=== PATIENT | female | born 1995 | race Caucasian/White ===

== ENCOUNTER 2016-09-01 17:16 | Emergency (ER) | payer MEDICAID ==
[2016-09-01] MEDS ORDERED: DEXAMETHASONE 10 MG/ML VIAL PO STA (17:53)
[2016-09-01] MEDS ORDERED: DEXAMETHASONE 10 MG/ML VIAL ONE (18:05)
== END 2016-09-01 18:13 | disposition home or self-care (01) ==
DX: M75.52 Bursitis of left shoulder (principal); M75.51 Bursitis of right shoulder; E03.9 Hypothyroidism, unspecified

== ENCOUNTER 2016-10-16 08:12 | Emergency (ER) | payer MEDICAID ==
[2016-10-16] MEDS ORDERED: DEXAMETHASONE 10 MG/ML VIAL PO STA (08:38)
[2016-10-16] MEDS ORDERED: DEXAMETHASONE 10 MG/ML VIAL ONE (08:41)
[2016-10-16] MEDS ORDERED: CHERRY SYRUP 10 ML UDC PO ONE (08:41)
== END 2016-10-16 08:56 | disposition home or self-care (01) ==
DX: M75.51 Bursitis of right shoulder (principal); R03.0 Elevated blood-pressure reading, without diagnosis of hypertension
CPT/HCPCS: 99283; A9270

== ENCOUNTER 2017-06-26 12:41 | Outpatient (CLI) | payer MEDICAID ==
[2017-06-26 18:00] LABS: BASOPHILS % (AUTO) 0.3 %; EOSINOPHILS # (AUTO) 0.1 10^3/uL (0.0-0.7); EOSINOPHILS % (AUTO) 1.3 %; HCT - HEMATOCRIT 42.3 % (37.0-47.0); HGB - HEMOGLOBIN 13.7 g/dL (12.0-16.0); LYMPHOCYTES # (AUTO) 3.6 10^3/uL (1.5-3.5); LYMPHOCYTES % (AUTO) 37.1 %; MEAN CORPUSCULAR HEMOGLOBIN 28.2 pg (27.0-31.0); MEAN CORPUSCULAR HGB CONC 32.5 g/dL (32.0-36.0); MEAN PLATELET VOLUME 8.3 fL (7.9-10.8); MONOCYTES # (AUTO) 0.4 10^3/uL (0.0-1.0); MONOCYTES % (AUTO) 4.5 %; NEUTROPHILS # (AUTO) 5.5 10^3/uL (1.5-6.6); NEUTROPHILS % (AUTO) 56.8 %; RED BLOOD COUNT 4.86 10^6/uL (4.20-5.40); RED CELL DISTRIBUTION WIDTH 13.7 % (12.0-15.0); UNCORRECTED WHITE BLOOD COUNT 9.6 x10^3/uL; WHITE BLOOD COUNT 9.6 x10^3/uL (4.8-10.8)
[2017-06-26 18:38] LABS: ALBUMIN/GLOBULIN RATIO 1.4 (1.0-2.2); BILIRUBIN,TOTAL 0.3 mg/dL (0.2-1.0); CALCIUM 9.1 mg/dL (8.5-10.3); CREATININE 0.7 mg/dL (0.4-1.0); POTASSIUM 3.9 mmol/L (3.5-5.0); TOTAL PROTEIN 7.1 g/dL (6.7-8.2)
== END 2017-06-26 12:42 | disposition home or self-care (01) ==
LOC: LAB.F 12:41
PROVIDERS: ATTEND Physician Assistant Medical
DX: J09.X2 Influenza due to identified novel influenza A virus with other respiratory manifestations (principal)
CPT/HCPCS: 36415; 80053; 85025

== ENCOUNTER 2017-09-13 15:57 | Outpatient (CLI) | payer MEDICAID ==
[2017-09-13 16:35] LABS: BASOPHILS % (AUTO) 0.3 %; EOSINOPHILS # (AUTO) 0.1 10^3/uL (0.0-0.7); EOSINOPHILS % (AUTO) 0.7 %; HGB - HEMOGLOBIN 13.1 g/dL (12.0-16.0); LYMPHOCYTES # (AUTO) 3.4 10^3/uL (1.5-3.5); LYMPHOCYTES % (AUTO) 27.2 %; MEAN CORPUSCULAR HEMOGLOBIN 27.9 pg (27.0-31.0); MEAN CORPUSCULAR VOLUME 84.7 fL (81.0-99.0); MEAN PLATELET VOLUME 7.5 fL (7.9-10.8); MONOCYTES # (AUTO) 0.6 10^3/uL (0.0-1.0); MONOCYTES % (AUTO) 4.9 %; NEUTROPHILS # (AUTO) 8.4 10^3/uL (1.5-6.6); NEUTROPHILS % (AUTO) 66.9 %; PLT - PLATELET COUNT 269 10^3/uL (130-450); RED BLOOD COUNT 4.69 10^6/uL (4.20-5.40); RED CELL DISTRIBUTION WIDTH 13.3 % (12.0-15.0); WHITE BLOOD COUNT 12.5 x10^3/uL (4.8-10.8)
[2017-09-13 17:23] LABS: BILIRUBIN,URINE NEGATIVE (NEGATIVE); GLUCOSE, URINE (UA) NEGATIVE (NEGATIVE); KETONES,URINE (UA) 15 mg/dL (NEGATIVE); LEUKOCYTE ESTERASE, URINE NEGATIVE (NEGATIVE); NITRITE,URINE NEGATIVE (NEGATIVE); OCCULT BLOOD,URINE TRACE-INTA (NEGATIVE); PROTEIN,URINE NEGATIVE (NEGATIVE); UROBILINOGEN,URINE 0.2 (NORMAL) E.U./dL (NORMAL)
[2017-09-13 18:02] LABS: THYROID STIMULATING HORMONE 1.74 uIU/mL (0.34-5.60)
[2017-09-13 18:06] LABS: BACTERIA,URINE Rare /HPF (None Seen); CLARITY,URINE CLEAR (CLEAR); MUCUS,URINE Few Strands; RBC,URINE 0-5 /HPF (0-5); SQUAMOUS EPITHELIAL CELL,UR MANY Squamous (<= Few)
[2017-09-14 14:33] LABS: HEPATITIS B SURFACE ANTIGEN NON-REACTIVE (NON-REACTIVE)
[2017-09-14 15:12] LABS: HIV AG/AB 4TH GEN NON-REACTIVE (NON-REACTIVE)
== END 2017-09-13 15:58 | disposition home or self-care (01) ==
LOC: LAB 15:57
PROVIDERS: ATTEND Registered Nurse
DX: Z36.9 Encounter for antenatal screening, unspecified (principal)
CPT/HCPCS: 36415; 81001; 81599; 84443; 85025; 86592; 86762; 86850; 86900; 86901; 87340; 87389

== ENCOUNTER 2017-10-11 08:00 | Outpatient (CLI) | payer MEDICAID | END 2017-10-11 23:59 | disposition home or self-care (01) | LOC: LAB.R 08:00 | PROVIDERS: ATTEND Nurse Practitioner Obstetrics & Gynecology | DX: N76.0 Acute vaginitis (principal) | CPT/HCPCS: 87480; 87510; 87660 ==

== ENCOUNTER 2017-10-11 16:24 | Outpatient (CLI) | payer MEDICAID ==
[2017-10-12 17:00] LABS: MUDS CUTOFF CONCENTRATIONS CUTOFF CONC BELOW:
[2017-10-12 17:23] LABS: AMPHETAMINE SCREEN,URINE NEGATIVE (NEGATIVE); BENZODIAZEPINES SCREEN, URINE NEGATIVE (NEGATIVE); COCAINE SCREEN URINE NEGATIVE (NEGATIVE); METHADONE SCREEN, URINE NEGATIVE (NEGATIVE); METHAMPHETAMINES SCREEN, URINE NEGATIVE (NEGATIVE); OPIATE SCREEN, URINE NEGATIVE (NEGATIVE); OXYCODONE SCREEN, URINE NEGATIVE (NEGATIVE); PROPOXYPHENE SCREEN, URINE NEGATIVE (NEGATIVE); TRICYCLIC ANTIDEPRESSANT,URINE NEGATIVE (NEGATIVE)
== END 2017-10-11 16:25 | disposition home or self-care (01) ==
LOC: LAB.R 16:24
PROVIDERS: ATTEND Nurse Practitioner Obstetrics & Gynecology
DX: Z34.01 Encounter for supervision of normal first pregnancy, first trimester (principal)
CPT/HCPCS: 80306

== ENCOUNTER 2017-12-07 07:31 | Outpatient (CLI) | payer MEDICAID ==
--- NOTE | 2017-12-08 15:23 | Ultrasound Report ---
OB ULTRASOUND: 12/07/2017 CLINICAL INDICATION: anatomy. TECHNIQUE: Real-time scanning was performed with medical service representative static images obtained. LAST MENSTRUAL PERIOD: 07/15/2017 Clinical Age: 20 weeks 5 days US Age: 20 weeks 2 days EFW Hadlock: 362 grams EFW% Hadlock: 37% Heart Rate: 137 bpm EDC: 04/21/2018 US EDC: 04/24/2018 BPD Hadlock: 19 weeks 6 days; Mean mm 46 HC Hadlock: 20 weeks 1 day; Mean mm 177 AC Hadlock: 20 weeks 5 days; Mean mm 156 FL Hadlock: 20 weeks 4 days; Mean mm 34 Presentation: cephalic Placental Location: anterior Cervical Length: TA 4.6 cm Amniotic Fluid: ERYN 13.0 cm; subjectively normal; MVP 4.9 cm FINDINGS There is a single viable intrauterine gestation, in cephalic presentation. heart rate 137 BPM. Placenta is anterior, without evidence of previa. Amniotic fluid volume is subjectively normal, with the deepest pocket of 4.9 cm. By size, the fetus measures 20 weeks 2 days (20 weeks 5 days by LMP). ANATOMY The following anatomic structures were visualized and appear normal: The intracranial contents, including the ventricles and posterior fossa; the lips and orbits; the spine; the heart, including 4 chamber view and outflow tracts, and diaphragm; the abdominal contents, including the stomach, the bilateral kidneys, and urinary bladder, as well as a normal 3 vessel cord insertion; 4 limbs. No free fluid or adnexal lesion is appreciated. IMPRESSION: SINGLE VIABLE INTRAUTERINE GESTATION, WITH SIZE IN KEEPING WITH LMP DATING. NORMAL ANATOMIC SURVEY. TD: 12/07/2017 15:25 [facility]
== END 2017-12-07 07:32 | disposition home or self-care (01) ==
LOC: DI 07:31
PROVIDERS: ATTEND Registered Nurse
DX: Z34.82 Encounter for supervision of other normal pregnancy, second trimester (principal)
CPT/HCPCS: 76811

== ENCOUNTER 2017-12-13 13:55 | Outpatient (CLI) | payer MEDICAID | END 2017-12-13 13:56 | disposition home or self-care (01) | LOC: LAB.R 13:55 | PROVIDERS: ATTEND Nurse Practitioner Obstetrics & Gynecology | DX: Z11.3 Encounter for screening for infections with a predominantly sexual mode of transmission (principal) | CPT/HCPCS: 87491; 87591 ==

== ENCOUNTER 2018-01-26 11:31 | Outpatient (CLI) | payer MEDICAID ==
[2018-01-26 12:51] LABS: HGB - HEMOGLOBIN 11.2 g/dL (12.0-16.0); MEAN CORPUSCULAR HEMOGLOBIN 29.8 pg (27.0-31.0); MEAN CORPUSCULAR HGB CONC 33.9 g/dL (32.0-36.0); MEAN PLATELET VOLUME 6.8 fL (7.9-10.8); RED BLOOD COUNT 3.75 10^6/uL (4.20-5.40); RED CELL DISTRIBUTION WIDTH 14.1 % (12.0-15.0)
== END 2018-01-26 11:32 | disposition home or self-care (01) ==
LOC: LAB 11:31
PROVIDERS: ATTEND Registered Nurse
DX: Z34.82 Encounter for supervision of other normal pregnancy, second trimester (principal)
CPT/HCPCS: 36415; 82950; 85027; 86850

== ENCOUNTER 2018-03-20 08:00 | Outpatient (CLI) | payer MEDICAID | END 2018-03-20 08:01 | disposition home or self-care (01) | LOC: LAB.R 08:00 | PROVIDERS: ATTEND Nurse Practitioner Obstetrics & Gynecology | DX: Z36.85 Encounter for antenatal screening for Streptococcus B (principal) | CPT/HCPCS: 87081 ==

== ENCOUNTER 2018-03-20 11:29 | Outpatient (CLI) | payer MEDICAID ==
[2018-03-20 12:37] LABS: ALBUMIN 2.9 g/dL (3.2-5.5); BILIRUBIN,DIRECT 0.1 mg/dL (0.1-0.5); BILIRUBIN,TOTAL 0.3 mg/dL (0.2-1.0); TOTAL PROTEIN 6.8 g/dL (6.7-8.2)
== END 2018-03-20 11:30 | disposition home or self-care (01) ==
LOC: LAB 11:29
PROVIDERS: ATTEND Registered Nurse
DX: L29.8 Other pruritus (principal); Z36.85 Encounter for antenatal screening for Streptococcus B
CPT/HCPCS: 36415; 80076; 82239; 87081

== ENCOUNTER 2018-03-26 10:38 | Outpatient (CLI) | payer MEDICAID ==
[2018-03-26 11:02] VITALS: BP 106/55
== END 2018-03-26 11:34 | disposition home or self-care (01) ==
LOC: WFO 10:38 → FBP 10:39 → WFO 11:34
PROVIDERS: ATTEND Nurse Practitioner Obstetrics & Gynecology
DX: O26.619 Liver and biliary tract disorders in pregnancy, unspecified trimester (principal)
CPT/HCPCS: 59025

== ENCOUNTER 2018-03-29 14:10 | Outpatient (CLI) | payer MEDICAID ==
[2018-03-29 14:34] VITALS: BP 122/74
== END 2018-03-29 15:00 | disposition home or self-care (01) ==
LOC: WFO 14:10 → FBP 14:12 → WFO 15:00
PROVIDERS: ATTEND Registered Nurse
DX: O26.613 Liver and biliary tract disorders in pregnancy, third trimester (principal); Z3A.37 37 weeks gestation of pregnancy
CPT/HCPCS: 59025

== ENCOUNTER 2018-03-31 07:29 | Inpatient (IN) | payer MEDICAID ==
[2018-03-31 10:02] LABS: BASOPHILS % (AUTO) 0.2 %; EOSINOPHILS # (AUTO) 0.2 10^3/uL (0.0-0.7); EOSINOPHILS % (AUTO) 1.4 %; HGB - HEMOGLOBIN 10.7 g/dL (12.0-16.0); LYMPHOCYTES % (AUTO) 24.4 %; MEAN CORPUSCULAR HEMOGLOBIN 28.6 pg (27.0-31.0); MEAN CORPUSCULAR HGB CONC 33.9 g/dL (32.0-36.0); MEAN CORPUSCULAR VOLUME 84.2 fL (81.0-99.0); MEAN PLATELET VOLUME 6.9 fL (7.9-10.8); MONOCYTES # (AUTO) 0.7 10^3/uL (0.0-1.0); MONOCYTES % (AUTO) 5.9 %; NEUTROPHILS # (AUTO) 8.3 10^3/uL (1.5-6.6); NEUTROPHILS % (AUTO) 68.1 %; PLT - PLATELET COUNT 240 10^3/uL (130-450); RED BLOOD COUNT 3.75 10^6/uL (4.20-5.40); RED CELL DISTRIBUTION WIDTH 14.1 % (12.0-15.0); WHITE BLOOD COUNT 12.2 x10^3/uL (4.8-10.8)
[2018-03-31] MEDS: miSOPROStol 100 MCG TABLET BC SCH ×4 (10:09→22:35)
[2018-03-31 10:30] LABS: ALBUMIN 2.8 g/dL (3.2-5.5); BILIRUBIN,DIRECT 0.1 mg/dL (0.1-0.5); BILIRUBIN,TOTAL 0.2 mg/dL (0.2-1.0); TOTAL PROTEIN 6.5 g/dL (6.7-8.2)
[2018-03-31] MEDS ORDERED: hydrOXYzine PAMOATE 25 MG CAPSULE PO PRN (13:56)
[2018-03-31] MEDS ORDERED: URSODIOL 250 MG TABLET PO SCH ×2 (14:00→14:20)
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
--- NOTE | 2018-03-31 14:33 | CONSULTATION NOTE ---
Referring Provider Name of Referring Provider:: REYMUNDO Allan CNM Consult Date: 03/31/18 (Dictation [id number]) History - Past Medical History Endocrine/Autoimmune: reports: HyPOthyroidism Musculoskeletal: reports: Other Meds/Allgy - Home Medications Home Medications: Ambulatory Orders Medication Instructions Recorded Confirmed Control 1 tab ORAL DAILY 09/01/16 10/16/16 Diclofenac Sodium [Voltaren] 2 gm TP Q6HR PRN #1 bottle 09/01/16 10/16/16 Hydrocodone/Acetaminophen 1 - 2 each PO Q6H PRN #14 tablet 09/01/16 10/16/16 [Hydrocodon-Acetaminophen 5-325] predniSONE [Prednisone] 40 mg PO DAILY 5 Days tablet 09/01/16 10/16/16 - Allergies Allergies/Adverse Reactions: Allergies Allergy/AdvReac Type Severity Reaction Status Date / Time No Known Drug Allergies Allergy Verified 10/16/16 08:16 Conclusion/Plan - Diagnosis Diagnosis: Cholestasis of - Plan Plan: Agree with induction of labor. Will be available should problems arise. - Lab Results Fish Bones: 03/31/18 09:52
[2018-03-31] MEDS: SODIUM CHLORIDE FLUSH 0.9% 10 ML SYRINGE IVP SCH (18:06)
--- NOTE | 2018-03-31 20:23 | CONSULTATION NOTE ---
DATE OF SERVICE: 03/31/2018 Physician: Blanca Vasquez DO FACOG IDENTIFICATION: A 23-year-old G1, P0 at 37 and 0/7 week intrauterine . EDC is consistent with 8-week ultrasound. EDC is 04/21/2018. HISTORY OF PRESENT ILLNESS: Mary is a patient of the midwifery service at [facility]. Mary has had a consistent regular care since 8 weeks' gestation. This has been complicated. On 02/27/2018 at 32 weeks, 3 days Mary noted increased pruritus during her routine OB visit. She had generalized pruritus, but was worse on her abdomen. There were maculopapular lesions which were erythematous and very pruritic. Some of these areas were noted to be coalescent. Serology was performed and her total bile acids were elevated at 11. AST and ALT were within normal limits as well as alkaline phosphatase. Given the elevated bile acids Mary met criteria for cholestasis of . Because of this diagnosis Mary is here today for an induction of labor. Repeat labs today show stable AST and ALT of 16 and 11 respectively. Mary has been admitted to the hospital and given 1 dose of Cytotec. Her cervix has improved to a cervical examination of 3 cm dilation, 80 % effacement and 0 station. Current nonstress test is nonreactive and category 1. There are no decelerations. PAST MEDICAL HISTORY: Opioid use disorder. PAST SURGICAL HISTORY: None. ALLERGIES: NO KNOWN DRUG ALLERGIES. MEDICATIONS: 1. Ursodiol 300 mg 1 tab p.o. t.i.d. 2. Fluconazole ointment p.r.n. 3. Hydroxyzine 50 mg q.6 hours p.r.n. 4. vitamin. SOCIAL HISTORY: Mary is a former smoker and she has a history of opioid abuse or opioid use disorder. She denies any alcohol or illicit drug use currently. U-tox screen on 10/03/2017 was negative. PAST OBSTETRICAL HISTORY: Primigravida. PAST GYNECOLOGICAL HISTORY: She denies any abnormal Pap smears or sexually transmitted diseases. FAMILY HISTORY: Her mother had diabetes and depression. She denies any female carcinoma. REVIEW OF SYSTEMS: Negative unless otherwise stated. PHYSICAL EXAMINATION: VITAL SIGNS: Stable. She is afebrile. GENERAL: Mary is a well-developed, well-nourished female in no apparent distress. She is alert and oriented x3. HEENT: Within normal limits. CARDIOVASCULAR: Regular. No murmurs or rubs. LUNGS: Lungs are clear to auscultation bilaterally. ABDOMEN: Gravid, nontender. LABORATORY DATA: Reveal that she is O positive, antibody screen negative. Her anatomical survey was consistent with dates and within normal limits. Placenta is noted to be anterior. Transabdominal cervical length was 4.6 cm. ERYN was 13.0 cm with an MVP of 94.9 cm. Three-vessel umbilical cord with normal insertion was noted. ASSESSMENT: 1. A 23-year-old G1, P0 at 37 and 0/7 week intrauterine . 2. Cholestasis of . 3. Cervix remote from delivery. PLAN: 1. Agree with flat bed operator Laney' plan for induction of labor and delivery. 2. I will available should flat bed operator Laney have any concerns about Mary. TD: 03/31/2018 14:41 MTDEarnestine
--- NOTE | 2018-03-31 21:49 | PROVIDER PROGRESS NOTE ---
Labor Progress Note - Uterine Monitoring Uterine Monitoring Mode: positive: External toco Contraction Frequency (min/apart): rare Contraction Intensity: positive: Moderate Uterine Resting Tone: positive: Soft - Monitoring Monitor Mode: positive: External ultrasound Heart Rate Baseline: 140 Heart Rate Variability: positive: Moderate (6-25 bmp) Accelerations: positive: Present, 15x15 Decelerations: positive: None Strip Review: positive: Category I - Vaginal Exam Dilation (in cm): 3 Effacement (%): 80 Station: 0 Cervical Position: Midposition - Labor Progress Note Labor Progress Note/Additional Text: S: Mary is doing well. She denies discomfort @ this time. She had the opportunity to speak w/ anesthesia & feels comfortable w/ their plan for pain management. Mendez is at the bedside & is involved & supportive. O: AAOx3, NAD WA gravid female VSS EFM: BL 140bpm, +accels, no decels, mod rj TOCO: rare contractions SVE: 3/80/0, midposition, soft, IBOW A: 23 y/o @ 37 weeks' EGA by first trimester US, IOL for intrahepatic cholestasis of GBS negative, IBOW s/p 3 doses buccal misoprostol w/o signficant cervical change or uterine activity LFTs stable on admission; taking TID ursodiol Adequate pain control w/o analgesia/anesthesia, hx OUD w/ desire to minimize opioid exposure r/t labor/delivery FHTs cat I P: 1. Continue misoprostol 50mcg BC q 4 hrs 2. Reassess cervical status w/ clear clinical change 3. Pt aware of analgesia/anesthesia & non-pharmacologic pain management options , to utilize as desired 4. Continue ursodiol 300mg po TID until delivered 5. Continue hydroxyzine 50mg po QID PRN pruritus 6. Reviewed plan of care w/ pt, partner & RN @ bedside; all in agreement, without concerns.
[2018-04-01] MEDS: SODIUM CHLORIDE FLUSH 0.9% 10 ML SYRINGE IVP SCH ×2 (00:59→01:32)
[2018-04-01] MEDS: miSOPROStol 100 MCG TABLET BC SCH ×2 (00:59→04:19)
[2018-04-01] MEDS ORDERED: LACTATED RINGERS 1,000 ML IV ONE ×3 (01:29→10:08)
[2018-04-01] MEDS ORDERED: BUPIVACAINE 0.25% PF 10 ML VIAL ONE (02:09)
[2018-04-01] MEDS ORDERED: fent/BUPIV 2 MCG/0.125% 250 ML EP ONE (02:09)
[2018-04-01] MEDS ORDERED: ePHEDrine 50 MG/ML VIAL IVP PRN (02:46)
[2018-04-01] MEDS ORDERED: LACTATED RINGERS 500 ML IV ONE (02:46)
[2018-04-01] MEDS ORDERED: NALBUPHINE 10 MG/ML AMP IVP PRN (02:46)
[2018-04-01] MEDS ORDERED: ONDANSETRON 4 MG/2 ML VIAL IVP PRN (02:46)
[2018-04-01] MEDS ORDERED: NALOXONE 0.4 MG/ML VIAL IVP PRN (02:46)
[2018-04-01] MEDS ORDERED: fent/BUPIV 2 MCG/0.125% 250 ML EP PRN (02:46)
[2018-04-01] MEDS: SODIUM CHLORIDE FLUSH 0.9% 10 ML SYRINGE IVP PRN ×2 (07:57→08:22)
--- NOTE | 2018-04-01 07:59 | PROVIDER PROGRESS NOTE ---
Labor Progress Note - Uterine Monitoring Uterine Monitoring Mode: positive: External toco Contraction Frequency (min/apart): 2-5 Contraction Intensity: positive: Moderate Uterine Resting Tone: positive: Soft - Monitoring Monitor Mode: positive: External ultrasound Heart Rate Baseline: 145 Heart Rate Variability: positive: Moderate (6-25 bmp) Accelerations: positive: Present, 15x15 Decelerations: positive: None Strip Review: positive: Category I - Vaginal Exam Dilation (in cm): 7 Effacement (%): 90 Station: -1 Cervical Position: Midposition - Labor Progress Note Labor Progress Note/Additional Text: S: Mary is comfortable w/ her epidural in place; her mother & partner are at the bedside & are involved & supportive. O: AAOx3, NAD [place] female EFM BL 145bpm, +accels, no decels, mod rj TOCO: UCs q2-6 min SVE: 7/90/-1, leaking moderate shantell blood A: 23 y/o @ 37w1d, induction of labor for cholestasis of Progressive cervical change s/p 3 doses BC misoprostol Shantell vaginal bleeding w/o clear etiology FHTs cat I Adequate pain control w/ epidural anesthesia P: 1. Reviewed bleeding & implications, possible etiologies: cervical vessel rupture vs. abruption 2. FSE placed to carefully monitor FHTs 3. CBC now 4. Begin Pitocin infusion & titrate to adequate labor by tocometry per protocol 5. Reassess cervical status x4 hours, earlier PRN 6. Reviewed optimal maternal positioning to facilitate descent
[2018-04-01] MEDS ORDERED: OXYTOCIN/SODIUM CHLORIDE 500 ML IV SCH (08:00)
[2018-04-01 08:24] LABS: BASOPHILS # (AUTO) 0.1 10^3/uL (0.0-0.1); BASOPHILS % (AUTO) 0.4 %; EOSINOPHILS # (AUTO) 0.1 10^3/uL (0.0-0.7); EOSINOPHILS % (AUTO) 0.3 %; HGB - HEMOGLOBIN 10.1 g/dL (12.0-16.0); LYMPHOCYTES # (AUTO) 3.3 10^3/uL (1.5-3.5); LYMPHOCYTES % (AUTO) 20.5 %; MEAN CORPUSCULAR HEMOGLOBIN 28.5 pg (27.0-31.0); MEAN CORPUSCULAR HGB CONC 34.1 g/dL (32.0-36.0); MEAN CORPUSCULAR VOLUME 83.6 fL (81.0-99.0); MONOCYTES # (AUTO) 0.9 10^3/uL (0.0-1.0); MONOCYTES % (AUTO) 5.3 %; NEUTROPHILS # (AUTO) 11.8 10^3/uL (1.5-6.6); NEUTROPHILS % (AUTO) 73.5 %; PLT - PLATELET COUNT 236 10^3/uL (130-450); RED BLOOD COUNT 3.53 10^6/uL (4.20-5.40); RED CELL DISTRIBUTION WIDTH 14.5 % (12.0-15.0); WHITE BLOOD COUNT 16.1 x10^3/uL (4.8-10.8)
[2018-04-01] MEDS ORDERED: METHYLERGONOVINE 0.2 MG/ML AMP ONE (08:33)
--- NOTE | 2018-04-01 09:41 | PROVIDER PROGRESS NOTE ---
Labor Progress Note - Uterine Monitoring Uterine Monitoring Mode: positive: External toco Contraction Frequency (min/apart): 2-4 Contraction Intensity: positive: Moderate to strong Uterine Resting Tone: positive: Soft - Monitoring Monitor Mode: positive: Spiral electrode Heart Rate Baseline: 155 Heart Rate Variability: positive: Moderate (6-25 bmp) Accelerations: positive: Present, 15x15 Decelerations: positive: Late (occasional, non-repetitive w/ recovery in response to intrauterine resuscitative measures) Strip Review: positive: Category II - Vaginal Exam Dilation (in cm): 9 Effacement (%): 100 Station: 0 Cervical Position: Anterior - Labor Progress Note Labor Progress Note/Additional Text: S: Mary is comfortable w/ her epidural in place. Family @ bedside, involved & very supportive. O: AAOx3, NAD WA gravid female VS: T 36.9, HR 91, RR 18, BP 121/75 FSE: BL 155bpm, +accels, occasional non-repetitive late decelerations to kemar in 130s w/ return to baseline in response to intrauterine resuscitative measures , moderate variability TOCO: UCs q2-4 min x60-80 seconds, palpably strong w/ 3mU/min Pitocin infusing SVE: anterior lip/100/0, position ROP, bloody vaginal d/c A: 23 y/o @ 37w1d, IOL secondary to intrahepatic cholestasis of Progressive cervical change s/p 3 doses BC misoprostol, Pitocin titrated slowly over a period of 2 hours to adequate labor pattern by tocometry w/ consequent cervical change Ongoing vaginal bleeding, hemodynamically stable--likely placental abruption, non-hemorrhagic w/o distress FHTs cat II w/o evidence of hypoxemia Adequate pain control w/ epidural anesthesia P: 1. Reviewed implications of late decelerations & need for ongoing careful monitoring of FHTs w/ response as clinically indicated; reviewed implications of clear progress towards vaginal delivery 2. Continue PRN intrauterine resuscitative measures 3. Continue to titrate Pitocin infusion per protocol to maintain adequate labor pattern 4. Reassess cervical status x2 hours, earlier PRN 5. Reviewed anticipatory guidance for 2nd stage labor 6. Anticipate 7. Reviewed plan of care w/ pt, family & RN @ bedside; all in agreement, without concerns
[2018-04-01] MEDS ORDERED: OXYTOCIN/SODIUM CHLORIDE 500 ML IV ONE (10:11)
[2018-04-01] MEDS ORDERED: LIDOCAINE 1% 50 ML MDV ONE ×2 (11:23→18:52)
[2018-04-01] MEDS ORDERED: HYDROCORTISONE 1% CREAM 28 GM TUBE PR PRN (11:35)
[2018-04-01] MEDS ORDERED: WITCH HAZEL/GLYCERIN 1 EACH MED..PAD TOP PRN (11:35)
[2018-04-01] MEDS ORDERED: MAGNESIUM HYDROXIDE 2,400 MG/30 ML UDC PO PRN (11:35)
[2018-04-01] MEDS ORDERED: OXYTOCIN/SODIUM CHLORIDE 250 ML IV ONE (11:35)
[2018-04-01] MEDS ORDERED: METHYLERGONOVINE 0.2 MG/ML AMP IM PRN (11:35)
--- NOTE | 2018-04-01 11:47 | DELIVERY NOTE ---
Delivery Note - Labor Labor: positive: Other (induction for intrahepatic cholestasis of ; 3 doses of misoprostol buccally followed by Pitocin infusion to maximum infusion rate of 3mU/min) - Infant Delivery Method Delivery Method: positive: Spontaneous vaginal delivery - Presentation Presentation: positive: Vertex, Compound (compound R hand; posterior shoulder/arm), RASHAAD - right occiput anterior - Nuchal Cord Nuchal Cord: positive: None - Anesthetic Anesthetic Type: Anesthetic: positive: Lidocaine - 1% plain Volume: positive: Other (15mL) - Amniotic Fluid Description Amniotic Fluid Description: positive: Bloody - Episiotomy Type Episiotomy Type: positive: None - Laceration Laceration: positive: Vaginal - Suture Suture Type: positive: Vicryl Suture Size: positive: 2-0 - Delivery Outcome Delivery Outcome: positive: Livebirth - [employer] [place]: positive: Placed in direct skin contact with mother, Stimulated, [place] used sex: positive: Female - Cord Cord: positive: 3 vessels - Placenta Placenta: positive: Intact, Spontaneous, Clot - Estimated Blood Loss Estimated Blood Loss (in cc): 500 - Delivery Comments (Free Text/Narrative) Delivery Comments (Free Text/Narrative): Mary Stephen is a 23 y/o Q3lcdC8 who presented for scheduled induction of labor secondary to intrahepatic cholestasis of , identified in the late 3rd trimester; surveillance all reassuring prior to admission. LFTs WNL. She received 3 doses of buccal misoprostol & entered active labor @ 0300 2017. She was 5cm dilated @ that time & elected to receive epidural anesthesia for her discomfort. She SROMed for moderately bloody amniotic fluid shortly thereafter. FHTs were monitored electronically & were cat I-II w/ FSE placed @ 7cm dilatation. She received Pitocin infusion for augmentation to a maximum infusion rate of 3mU/min & progressed steadily w/ Pitocin infusion & adequate contraction pattern to complete dilatation @ 1006, for a total first stage duration of 7 hours, 6 minutes. She pushed w/ excellent expulsive effort, some spontaneous urge & considerable direction to viable female in RASHAAD position w/ compound R hand over an intact perineum @ 1100, for a total 2nd stage duration of 54 minutes. Infant vigorous w/ spontaneous, lusty cry. Placed to maternal abd for drying/stim. Delayed cord clamping until cessation of pulsation, then cord clamped x2 by CNM, cut by FOB. 3VC noted, cord segment obtained for gases, cord blood obtained. Markedly short cord noted @ the time of delivery. Active management of the 3rd stage of labor w/ Pitocin in IV fluids & methergine 0.2mg IM x1 secondary to moderate vaginal bleeding during labor & prior to 3rd stage. Placenta del spont, [place], macerated; AUTUMN swept for large amount of clot & small cotyledon. FF @ U-1. Vagina & perineum inspected & shallow vaginal laceration noted; repaired s/p infiltration w/ 10mL 1% lidocaine. Hemostatic & well-approximated. EBL 500mL. apgars 9/9. Weight pending. Infant actively nuzzling @ breast w/in 15 minutes of delivery. Plans to breastfeed. Will continue po methergine series until d/c home, given placental maceration & degree of bleeding prior to delivery. Mother & stable.
[2018-04-01] MEDS: ACETAMINOPHEN 500 MG TABLET PO SCH (13:48)
[2018-04-01] MEDS: CELECOXIB 100 MG CAPSULE PO SCH (14:20)
[2018-04-01] MEDS: HYDROCORTISONE/PRAMOXINE 10 GM PR PRN (16:05)
[2018-04-01] MEDS ORDERED: CHERRY SYRUP 10 ML UDC PO ONE (18:55)
[2018-04-01] MEDS: METHYLERGONOVINE 0.2 MG/ML AMP PO SCH (18:59)
[2018-04-01] MEDS: DOCUSATE SODIUM 100 MG CAPSULE PO SCH (21:44)
[2018-04-01 22:57] LABS: BASOPHILS % (AUTO) 0.1 %; EOSINOPHILS # (AUTO) 0.1 10^3/uL (0.0-0.7); EOSINOPHILS % (AUTO) 0.8 %; HGB - HEMOGLOBIN 7.8 g/dL (12.0-16.0); LYMPHOCYTES # (AUTO) 2.9 10^3/uL (1.5-3.5); LYMPHOCYTES % (AUTO) 19.7 %; MEAN CORPUSCULAR HEMOGLOBIN 27.9 pg (27.0-31.0); MEAN CORPUSCULAR HGB CONC 33.2 g/dL (32.0-36.0); MEAN CORPUSCULAR VOLUME 84.2 fL (81.0-99.0); MEAN PLATELET VOLUME 6.8 fL (7.9-10.8); MONOCYTES % (AUTO) 6.9 %; NEUTROPHILS # (AUTO) 10.5 10^3/uL (1.5-6.6); NEUTROPHILS % (AUTO) 72.5 %; PLT - PLATELET COUNT 195 10^3/uL (130-450); RED BLOOD COUNT 2.79 10^6/uL (4.20-5.40); RED CELL DISTRIBUTION WIDTH 14.4 % (12.0-15.0); WHITE BLOOD COUNT 14.4 x10^3/uL (4.8-10.8)
[2018-04-02] MEDS: ACETAMINOPHEN 500 MG TABLET PO SCH ×3 (00:26→18:46)
[2018-04-02] MEDS ORDERED: CHERRY SYRUP 10 ML UDC PO ONE ×2 (04:34→13:30)
[2018-04-02] MEDS: CELECOXIB 100 MG CAPSULE PO SCH ×3 (04:42→21:08)
[2018-04-02] MEDS: METHYLERGONOVINE 0.2 MG/ML AMP PO SCH ×3 (04:44→16:45)
[2018-04-02 05:34] LABS: EOSINOPHILS # (AUTO) 0.2 10^3/uL (0.0-0.7); MONOCYTES # (AUTO) 0.9 10^3/uL (0.0-1.0); RED BLOOD COUNT 2.74 10^6/uL (4.20-5.40)
[2018-04-02 05:47] LABS: BASOPHILS % (AUTO) 0.2 %; HGB - HEMOGLOBIN 7.8 g/dL (12.0-16.0); LYMPHOCYTES # (AUTO) 3.5 10^3/uL (1.5-3.5); LYMPHOCYTES % (AUTO) 22.8 %; MEAN CORPUSCULAR HEMOGLOBIN 28.6 pg (27.0-31.0); MEAN CORPUSCULAR HGB CONC 33.6 g/dL (32.0-36.0); MEAN CORPUSCULAR VOLUME 85.2 fL (81.0-99.0); MEAN PLATELET VOLUME 7.1 fL (7.9-10.8); MONOCYTES % (AUTO) 5.7 %; NEUTROPHILS # (AUTO) 10.9 10^3/uL (1.5-6.6); NEUTROPHILS % (AUTO) 70.3 %; PLT - PLATELET COUNT 197 10^3/uL (130-450); RED CELL DISTRIBUTION WIDTH 14.7 % (12.0-15.0); WHITE BLOOD COUNT 15.5 x10^3/uL (4.8-10.8)
[2018-04-02] MEDS: DOCUSATE SODIUM 100 MG CAPSULE PO SCH ×2 (09:14→21:08)
[2018-04-02] MEDS: FERROUS SULFATE 325 MG TABLET PO SCH (09:14)
[2018-04-02 11:46] LABS: BASOPHILS % (AUTO) 0.3 %; EOSINOPHILS # (AUTO) 0.2 10^3/uL (0.0-0.7); EOSINOPHILS % (AUTO) 1.3 %; HGB - HEMOGLOBIN 7.9 g/dL (12.0-16.0); LYMPHOCYTES # (AUTO) 3.6 10^3/uL (1.5-3.5); LYMPHOCYTES % (AUTO) 21.4 %; MEAN CORPUSCULAR HEMOGLOBIN 28.1 pg (27.0-31.0); MEAN CORPUSCULAR VOLUME 85.1 fL (81.0-99.0); MONOCYTES # (AUTO) 1.2 10^3/uL (0.0-1.0); MONOCYTES % (AUTO) 7.4 %; NEUTROPHILS # (AUTO) 11.6 10^3/uL (1.5-6.6); NEUTROPHILS % (AUTO) 69.6 %; PLT - PLATELET COUNT 215 10^3/uL (130-450); RED CELL DISTRIBUTION WIDTH 14.5 % (12.0-15.0); WHITE BLOOD COUNT 16.7 x10^3/uL (4.8-10.8)
--- NOTE | 2018-04-02 13:53 | PROVIDER PROGRESS NOTE ---
Subjective - Prog Note Date Prog Note Date: 04/02/18 Prog Note Time: 08:30 - Subjective Pt reports feeling: Improved Subjective: Mary is doing well. She is ambulating & voiding w/o difficulty. She denies light-headedness & denies dizziness. She slept poorly but she reports that she does not have excessive fatigue that she notices. She is passing flatus & tolerating a regular diet. She is w/o discomfort. She reports moderate lochia rubra. Objective - Vital Signs/Intake & Output Reviewed Vital Signs: Yes Vital Signs: Vital Signs x48h Temp Pulse Resp BP Pulse Ox 04/02/18 09:41 36.9 C 78 18 101/60 99 Intake & Output: Intake & Output 03/30/18 03/31/18 04/01/18 04/02/18 23:59 23:59 23:59 23:59 Intake Total 250.517 Output Total 900 1 Balance -649.483 -1 - Objective General Appearance: positive: No acute distress, Alert Respiratory: positive: Chest non-tender, No respiratory distress, Breath sounds nml Cardiovascular: positive: Regular rate & rhythm, No murmur, No gallop Abdomen: positive: Non-tender, No distention, Other (FF U-1) Skin: positive: Color nml, No rash, Warm, Dry Extremities: positive: Non-tender, Full ROM, Nml appearance, No pedal edema. negative: Calf tenderness, Shasha's sign/cords Neurologic/Psychiatric: positive: Oriented x3, CN's nml (2-12), Motor nml, Sensation nml, Mood/affect nml Comments/Other: Breasts b/l s, nt; nipples b/l intact & everted; colostrum readily expressible Perineum intact w/o erythema/edema/ecchymosis, moderate lochia rubra, no notable hematoma - Lab Results Fish Bones: 04/02/18 11:30 Other Labs: Lab Results x24hrs 04/02/18 04/02/18 04/01/18 Range/Units 11:30 05:25 22:53 WBC 16.7 H 15.5 H 14.4 H (4.8-10.8) x10^3/uL RBC 2.80 L 2.74 L 2.79 L (4.20-5.40) 10^6/uL Hgb 7.9 L 7.8 L 7.8 L (12.0-16.0) g/dL Hct 23.8 L 23.4 L 23.5 L (37.0-47.0) % MCV 85.1 85.2 84.2 (81.0-99.0) fL MCH 28.1 28.6 27.9 (27.0-31.0) pg MCHC 33.0 33.6 33.2 (32.0-36.0) g/dL RDW 14.5 14.7 14.4 (12.0-15.0) % Plt Count 215 197 195 (130-450) 10^3/uL MPV 7.0 L 7.1 L 6.8 L (7.9-10.8) fL Neut # (Auto) 11.6 H 10.9 H 10.5 H (1.5-6.6) 10^3/uL Lymph # (Auto) 3.6 H 3.5 2.9 (1.5-3.5) 10^3/uL [place] # (Auto) 1.2 H 0.9 1.0 (0.0-1.0) 10^3/uL Eos # (Auto) 0.2 0.2 0.1 (0.0-0.7) 10^3/uL Baso # (Auto) 0.0 0.0 0.0 (0.0-0.1) 10^3/uL Absolute Nucleated RBC 0.00 0.00 0.01 x10^3/uL Nucleated RBC % 0.0 0.0 0.0 /100WBC ABX Reporting Has patient been on IV antibiotics over the past 48 hours?: No Assessment/Plan - Problem List (1) (normal spontaneous vaginal delivery) Impression: 23 y/o s/p 04/01/ w/ vaginal laceration w/ repair w/ likely placental abruption during labor, increased pp bleeding s/p delivery, PPD #1 Normal uterine involution Moderate lochia rubra Anemia secondary to acute blood loss, hemodynamically stable & asymptomatic well Adequate pain control w/o opioid analgesia P: 1. Continue routine pp care 2. Po FeSO4 supplementation, repeat CBC to ensure stability, reviewed transfusion option & pt declines @ this time 3. Continue po methergine series until d/c home, continue careful monitoring of lochia 4. support provided & to continue in ongoing fashion 5. Anticipate d/c home PPD#2
[2018-04-02] MEDS: HYDROCORTISONE/PRAMOXINE 10 GM PR PRN (18:46)
[2018-04-03] MEDS ORDERED: CHERRY SYRUP 10 ML UDC PO ONE ×4 (00:21→22:49)
[2018-04-03] MEDS: FERROUS SULFATE 325 MG TABLET PO SCH ×3 (00:25→17:56)
[2018-04-03] MEDS: ACETAMINOPHEN 500 MG TABLET PO SCH ×3 (00:25→16:18)
[2018-04-03] MEDS: METHYLERGONOVINE 0.2 MG/ML AMP PO SCH ×5 (00:25→22:51)
[2018-04-03] MEDS: HYDROCORTISONE/PRAMOXINE 10 GM PR PRN (08:29)
[2018-04-03] MEDS: DOCUSATE SODIUM 100 MG CAPSULE PO SCH ×2 (08:29→22:01)
[2018-04-03] MEDS: CELECOXIB 100 MG CAPSULE PO SCH ×2 (08:30→22:01)
[2018-04-04] MEDS ORDERED: CHERRY SYRUP 10 ML UDC PO ONE (06:20)
[2018-04-04] MEDS: METHYLERGONOVINE 0.2 MG/ML AMP PO SCH (06:23)
[2018-04-04] MEDS: CELECOXIB 100 MG CAPSULE PO SCH (09:03)
[2018-04-04] MEDS: FERROUS SULFATE 325 MG TABLET PO SCH (09:03)
[2018-04-04] MEDS: DOCUSATE SODIUM 100 MG CAPSULE PO SCH (09:03)
--- NOTE | 2018-04-04 11:10 | PROVIDER PROGRESS NOTE ---
Subjective - Prog Note Date Prog Note Date: 04/03/18 Prog Note Time: 10:00 - Subjective Pt reports feeling: Improved Subjective: Mary is doing well. She is ambulating & voiding w/o difficulty. She is w/ some challenges. She reports minimal lochia rubra. her pain is well-controlled w/ non-opioid analgesia Objective - Vital Signs/Intake & Output Reviewed Vital Signs: Yes Vital Signs: Vital Signs x48h Temp Pulse Resp BP Pulse Ox 04/04/18 08:51 36.8 C 82 18 114/68 98 Intake & Output: Intake & Output 04/01/18 04/02/18 04/03/18 04/04/18 23:59 23:59 23:59 23:59 Intake Total 250.517 780 Output Total 900 1 Balance -649.483 779 - Objective General Appearance: positive: No acute distress, Alert Respiratory: positive: Chest non-tender, No respiratory distress, Breath sounds nml Cardiovascular: positive: Regular rate & rhythm, No murmur Abdomen: positive: Non-tender, Other (FF U-2) Skin: positive: Color nml, No rash, Warm, Dry Extremities: positive: Non-tender, Full ROM, Nml appearance, Pedal edema (+3 to the knee b/l). negative: Calf tenderness, Joint swelling, Shasha's sign/cords Neurologic/Psychiatric: positive: Oriented x3, CN's nml (2-12), Motor nml, Sensation nml, Mood/affect nml Comments/Other: Breasts b/l s, nt; nipples b/l intact & everted; colostrum readily expressible. Infant assisted w/ latch & 10/10 latch achieved Perineum intact w/ minimal lochia rubra, no erythema/edema/ecchymosis - Lab Results Fish Bones: 04/02/18 11:30 Assessment/Plan - Problem List (1) (normal spontaneous vaginal delivery) Impression: 23 y/o PPD#2 s/p w/ PPH Anemia, asymptomatic & hemodynamically stable w/ some challenges Adequate pain control Normal uterine involution P: 1. Extensive support provided & to continue in ongoing fashion 2. Continue po methergine series & po iron supplementation, reviewed iron-rich foods 3. Continue routine pp care 4. anticipate d/c home PPD #3 if consistently stable
--- NOTE | 2018-04-04 11:14 | Discharge Plan ---
Discharge Plan Disposition: 01 Home, Self Care Condition: Good Diet: Regular Activity Restrictions: pelvic rest x6 weeks Shower Restrictions: No Driving Restrictions: No Weight Bearing: Full Weight Additional Instructions or Follow Up instructions: x1 week maira/ Natalia Bazzi CNM, al PRN No Smoking: If you smoke, Please STOP! Call for help. Follow-up with: Natalia Bazzi CNM, REYMUNDO [Provider Admit Priv/Credential] -
[2018-04-04 11:29] VITALS: BP 120/69
[2018-04-04] MEDS: ACETAMINOPHEN 500 MG TABLET PO SCH (12:00)
--- NOTE | 2018-04-04 12:08 | DISCHARGE SUMMARY ---
"Discharge Summary Admit Date: 03/31/18 Discharge Date: 04/04/18 Discharging Provider: PASCALE Code Status: Attempt Resuscitation Condition at Discharge: Good Discharge Disposition: 01 Home, Self Care Discharge Facility [facility]: [facility] - DIAGNOSES Admission Diagnoses: intrahepatic cholestasis of Discharge Diagnoses with Status of Each Condition: anemia due to acute blood loss - HPI History of Present Illness: Mary Stephen is a 23 y/o [id number] who was admitted for preinduction cervical ripening w/ Misoprostol 50mcg buccally at 37 weeks' gestation for intrahepatic cholestasis of . She received 3 doses of buccal misoprostol & progressed readily. She received epidural anesthesia for her discomfort. She had marked vaginal bleeding during the course of her labor & bloody fluid w/ ROM. She received Pitocin infusion to maximum infusion rate of 3mU/min & progressed readily to complete dilatation. She delivered a viable female vaginally w/o complication & sustained a vaginal laceration during delivery, which was repaired w/o complication. - CONSULTS | PROCEDURES Consultations: obstetrics, anesthesia Procedures: preinduction cervical ripening induction of labor epidural placement fse placement repair of vaginal laceration - HOSPITAL COURSE Hospital Course: , Mary is anemic but stable s/p acute blood loss during labor/ delivery. She has been on a po methergine series & is taking po iron supplementation & her bleeding as well as her vital signs have been stable. She declines blood transfusion. She is ambulating & voiding w/o difficulty. She is passing flatus & tolerating a regular diet. She is well w / excellent sustained latch. She reports minimal lochia rubra. She is able to fully articulate pp warning s/sx, including pp depression s/sx, and pp aftercare instructions. She is ready to leave the hospital. - ALLERGIES Allergies/Adverse Reactions: Allergies Allergy/AdvReac Type Severity Reaction Status Date / Time No Known Drug Allergies Allergy Verified 10/16/16 08:16 - PHYSICAL EXAM AT DISCHARGE General Appearance: positive: No acute distress, Alert Eyes Bilateral: positive: Normal inspection Respiratory: positive: Chest non-tender, No respiratory distress, Breath sounds nml Cardiovascular: positive: Regular rate & rhythm, No murmur Abdomen: positive: Non-tender, Other (FF U-3) Skin: positive: Color nml, No rash Extremities: positive: Non-tender, Full ROM, Pedal edema. negative: Calf tenderness, Shasha's sign/cords Neurologic/Psychiatric: positive: Oriented x3, CN's nml (2-12), Motor nml, Sensation nml, Mood/affect nml - LABS Result Diagrams: 04/02/18 11:30 - FOLLOW UP Follow Up: x 1 week w/ Natalia Bazzi, al PRN - TIME SPENT Time Spent in Discharge (Minutes): 20"
--- NOTE | 2018-04-04 15:07 | Labor Flowsheet ---
Labor Flowsheet Datetime Report Generated by CPN: 04/04/2018 15:07 Datetime: 04/04/2018 11:16 VITAL SIGNS NBP Sys/Jennifer/Mean (mmHg): 120 : 69 : 80 Pulse: 77 LaborFlag: Antepartum Datetime: 04/03/2018 08:39 SpO2 (%): 100 Datetime: 04/01/2018 11:00 UTERINE ACTIVITY Monitor Mode: External Frequency (min): 2-3 Quality: Strong Duration (sec): 60-90 Pattern: Normal: <= 5 Contractions in 10 Minutes Resting Tone (Palpate): Relaxed ASSESSMENT A Monitor Mode: Internal Scalp Electrode FHR Baseline Rate : unable to determine, pt pushing with contractions Variability: Moderate 6-25 bpm Accelerations: unable to determine Decelerations: Variable (Annotations: Multiple decelerations during pushing with contractions down to 80 bpm lasting 40-60 secs.) Category: Category II Datetime: 04/01/2018 10:59 Comments: Vigorous female Datetime: 04/01/2018 10:30 Communication Comments: Dr. Arias notified and on his way in Datetime: 04/01/2018 10:11 STAGE 2 Pushing Position: Pushing with Contractions Stage 2 Comments: pt begins pushing, Milagrosa at bedside Datetime: 04/01/2018 10:10 Patient Care Comments: mcfarland discontinued Datetime: 04/01/2018 10:00 Respirations: 18 Temperature (C): 36.9 Temperature Route: Oral Actions for Decelerations: Provider aware and in room PAIN Pain Scale: 4 Pain Presence: Intermittent Pain Type: Contraction Anesthesia Level Check: T10- Umbilicus Datetime: 04/01/2018 09:30 MEDICATIONS Pitocin (milliunits): Started @ (Annotations: 3 Back on per CNM Milagrosa) Datetime: 04/01/2018 09:29 Patient Position/Activity: Right Tilt Datetime: 04/01/2018 09:25 Oxygen Amount (LPM): 10 Oxygen Method: Non-Rebreather Datetime: 04/01/2018 09:00 Pitocin Checklist: At Least 1 Acceleration of 15 bpm x 15 Seconds in 30 Minutes or Adequate Variabi lity; No More than 1 Late Deceleration Occurred in Past 30 Minutes; No More than 2 Variable Decelerat ions > 60 Seconds in Duration and decreasing >60 bpm in 30 minutes; No More than 5 Uterine Contractio ns in 10 Minutes for any 20 Minute Interval; Uterus Palpates Soft between Contractions Datetime: 04/01/2018 08:30 Monitor Interventions for UA: [place] Adjusted Datetime: 04/01/2018 07:43 VAGINAL EXAM Dilatation (cm): 7.0 Effacement (%): 90 Station: -1 Exam by: CNM Rose Mary Vaginal Bleeding: Moderate (Annotations: Large clot) Datetime: 04/01/2018 07:23 Strip Reviewed by: CNM Mendezagralba Datetime: 04/01/2018 06:58 Monitor Interventions for FHR: Ultrasound Adjusted Datetime: 04/01/2018 06:00 MATERNAL ASSESSMENT Level of Consciousness: Fully Conscious Nausea/Vomiting: Denies Datetime: 04/01/2018 05:26 Cervix, Consistency: Moderate Cervix, Position: Midposition Datetime: 04/01/2018 05:25 I/O Interventions: [place] Cath Inserted Datetime: 04/01/2018 05:12 PATIENT CARE IV/Blood Work: IV Bolus Started Datetime: 04/01/2018 04:19 Cervical Ripening Agents: Cytotec @ 50 Medication Comments: buccal Datetime: 04/01/2018 03:21 COMMUNICATION Provider Notified (Name): CNM Milagrosa Datetime: 04/01/2018 03:17 Membrane Status: Ruptured Membranes Rupture Method: Spontaneous Amniotic Fluid Color: Bloody Amniotic Fluid Amount: Moderate Membrane Comments: accompanied by some bleeding and clots Datetime: 04/01/2018 02:30 Vital Sign Comments: bolus complete, Sl'd Epidural Procedure Other: Pump Started Datetime: 04/01/2018 02:29 Epidural Procedure: Completed Datetime: 04/01/2018 02:20 ANESTHESIA Anesthesia Plans: Local Datetime: 04/01/2018 02:16 Epidural Positioning: Sitting Datetime: 04/01/2018 02:15 Anesthesia Comments: PREP ROOM SUPERVISOR Maida @BS Datetime: 04/01/2018 00:50 Pain Location: Abdomen Pain Relief Measures: Comfort Measures Pain Coping: Breathing Through Contractions Pain Assessment Comments: pt states nitrous oxide is helpful Headache: Denies RUQ Epigastric Pain: Denies Comfort Measures: Breathing/Relaxation; Family Support Datetime: 04/01/2018 00:30 Contraction Comments: getting much more uncomfortable Datetime: 03/31/2018 23:30 FHR Baseline Changes: No Baseline Change Datetime: 03/31/2018 18:00 Stage of : Antepartum Pain Goal: 3 Datetime: 03/31/2018 14:23 Notification Reason: Other Datetime: 03/31/2018 08:00 Breath Sounds, Left: Clear and Equal Breath Sounds, Right: Clear and Equal PRE-INDUCTION CHECKLIST Orders on Chart: Yes H Record Available: Yes Indication Charted: Yes Consent Signed and on Chart: Yes TEACHING Plan of Care: Plan of Care Discussed; Induction Unit Routine: [place] to Room; Call Lynn; Unit Personnel; Handwashing; Monitoring; Medications Labor/Induction: Cervical Ripening; Induction Pain Management: Epidural Medications: Cervical Ripening
== END 2018-04-04 14:00 | disposition home or self-care (01) | DRG 774 ==
LOC: WFO 07:29 → FBP 07:31 → OBSVTOIN 13:55
PROVIDERS: ADMIT Registered Nurse; ATTEND Registered Nurse
PROC: 10E0XZZ Delivery of Products of Conception, External Approach (ICD-10-PCS; principal; 2018-04-01)
PROC: 3E0P7VZ Introduction of Hormone into Female Reproductive, Via Natural or Artificial Opening (ICD-10-PCS; 2018-04-01)
PROC: 3E033VJ Introduction of Other Hormone into Peripheral Vein, Percutaneous Approach (ICD-10-PCS; 2018-04-01)
PROC: 0UQGXZZ Repair Vagina, External Approach (ICD-10-PCS; 2018-04-01)
DX: O26.62 Liver and biliary tract disorders in childbirth (principal); O45.93 Premature separation of placenta, unspecified, third trimester; K83.1 Obstruction of bile duct; D62 Acute posthemorrhagic anemia; Z3A.37 37 weeks gestation of pregnancy; Z37.0 Single live birth; O70.0 First degree perineal laceration during delivery
CPT/HCPCS: 36415; 80076; 85025

== ENCOUNTER 2018-07-30 09:57 | Outpatient (CLI) | payer MEDICAID ==
--- NOTE | 2018-07-30 17:22 | MRI Report ---
Reason: BURSITIS OF RIGHT SHOULDER Procedure Date: 07/30/2018 Accession Number: [id number] / [id number] Procedure: MRI - Shoulder RT W/O CPT Code: FULL RESULT: EXAM: RIGHT SHOULDER MRI WITHOUT CONTRAST EXAM DATE: 07/30/2018 10:48 AM. CLINICAL HISTORY: Bursitis of right shoulder. COMPARISON: None. TECHNIQUE: Multiplanar, multisequence T1-weighted and fluid-sensitive sequences of the shoulder without contrast. Other: None. FINDINGS: Acromioclavicular Region: The acromion is type II. The acromioclavicular joint is unremarkable. The coracoacromial and coracoclavicular ligaments are intact. There is a small amount of bursal fluid present. Glenohumeral Region: No subluxation. No effusion or loose bodies. The articular cartilage is unremarkable. The glenohumeral ligaments and joint capsule are unremarkable. Bone Marrow: No fracture, marrow edema or bone lesions. Labrum: There is a suggestion of some increased T2 signal at the posterior labrum which is suspicious for a full-thickness posterior labral tear. Series 401 image 21 and 22. Musculature/Rotator Cuff: There is mild increased T2 signal in the supraspinatus and infraspinatus portion of the cuff, no partial or full-thickness tears. No edema or fatty atrophy of the proximal muscle bundles. Biceps Tendon: The long head of the biceps tendon and biceps gen are intact. Other: The subcutaneous tissues are unremarkable. IMPRESSION: 1. Type II unipartite undersurface osseous acromion shape. Small amount of bursal fluid is present. 2. Suggestion of some increased T2 signal of the posterior labrum, suspicious for full-thickness posterior labral tear. If there is anterior-posterior instability, arthrography may be needed. 3. Mild tendinopathy of the supraspinatus and infraspinatus portion of the rotator cuff. Remainder of the cuff appears unremarkable. 4. Long head of biceps and biceps tendon appear intact. [facility]IA MUSCULOSKELETAL RADIOLOGY SECTION
== END 2018-07-30 09:58 | disposition home or self-care (01) ==
LOC: DI 09:57
PROVIDERS: ATTEND Orthopaedic Surgery Sports Medicine
DX: M75.51 Bursitis of right shoulder (principal); M75.91 Shoulder lesion, unspecified, right shoulder

== ENCOUNTER 2018-10-26 17:19 | Emergency (ER) | payer MEDICAID ==
[2018-10-26] MEDS ORDERED: predniSONE 20 MG TABLET PO STA (19:31)
[2018-10-26] MEDS ORDERED: HYDROcod/ACET 5/325 Prepack 4 PO STA (19:31)
--- NOTE | 2018-10-26 19:33 | ED Physician Documentation ---
PD HPI UPPER EXT INJURY - Stated complaint Stated Complaint: BILAT SHOULDER PX - Chief complaint Chief Complaint: Ext Problem - History obtained from History obtained from: Patient - History of Present Illness Location: Shoulder (She has chronic recurrent bursitis of both shoulders and has a had a flare for the last week unrelieved by an oral NSAID.) Review of Systems Constitutional: denies: Fever, Chills Cardiac: reports: Chest pain / pressure Respiratory: reports: Reviewed and negative PD PAST MEDICAL HISTORY - Past Medical History Endocrine/Autoimmune: HyPOthyroidism Musculoskeletal: Other - Past Surgical History Past Surgical History: No - Present Medications Home Medications: Ambulatory Orders Medication Instructions Recorded Confirmed Hydrocodone/Acetaminophen 1 - 2 each PO Q6H PRN #14 tablet 10/26/18 [Hydrocodon-Acetaminophen 5-325] predniSONE [Deltasone] 20 mg PO [id number] #21 tab 10/26/18 - Allergies Allergies/Adverse Reactions: Allergies Allergy/AdvReac Type Severity Reaction Status Date / Time No Known Drug Allergies Allergy Verified 10/26/18 17:38 - Social History Does the pt smoke?: No Smoking Status: Never smoker Does the pt drink ETOH?: No Does the pt have substance abuse?: No - Immunizations Immunizations are current?: Yes PD ED PE NORMAL - Vitals Vital signs reviewed: Yes - General General: Alert and oriented X 3, No acute distress - Extremities Extremities: Other (Tender to the tops of both shoulders but with decent range of motion, no deformity.) - Neuro Neuro: Alert and oriented X 3, Normal speech Results - Vitals Vitals: Vital Signs - 24 hr 10/26/18 17:37 Temperature 36.4 C L Heart Rate 59 L Respiratory 18 Rate Blood Pressure 112/68 O2 Saturation 100 Oxygen O2 Source Room air Departure - Departure Disposition: Home, Self Care Clinical Impression: Bursitis of both shoulders Condition: Good Record reviewed to determine appropriate education?: Yes Instructions: ED Capsulitis Adhesive Shoulder Prescriptions: Hydrocodone/Acetaminophen [Hydrocodon-Acetaminophen 5-325] 1 - 2 each PO Q6H PRN #14 tablet PRN Reason: pain predniSONE [Deltasone] 20 mg PO [id number] #21 tab Comments: Call your doctor to arrange a follow-up appointment, make the next available appointment. In the interim, return anytime if worse or if new symptoms develop.
[2018-10-26 19:56] VITALS: BP 135/76
== END 2018-10-26 19:56 | disposition home or self-care (01) ==
LOC: ED 17:19
DX: M75.52 Bursitis of left shoulder (principal); M75.51 Bursitis of right shoulder
CPT/HCPCS: 99283; J7512

== ENCOUNTER 2020-07-17 08:00 | Outpatient (CLI) | payer OTHER, MEDICAID ==
[2020-07-17 17:20] LABS: MUDS CUTOFF CONCENTRATIONS CUTOFF CONC BELOW:
[2020-07-17 17:35] LABS: BILIRUBIN,URINE NEGATIVE (NEGATIVE); GLUCOSE, URINE (UA) NEGATIVE (NEGATIVE); KETONES,URINE (UA) TRACE mg/dL (NEGATIVE); LEUKOCYTE ESTERASE, URINE NEGATIVE (NEGATIVE); NITRITE,URINE NEGATIVE (NEGATIVE); OCCULT BLOOD,URINE NEGATIVE (NEGATIVE); PROTEIN,URINE NEGATIVE (NEGATIVE); UROBILINOGEN,URINE 0.2 (NORMAL) E.U./dL (NORMAL)
[2020-07-17 17:39] LABS: CLARITY,URINE HAZY (CLEAR)
[2020-07-17 17:50] LABS: AMORPHOUS SEDIMENT,UR Few /LPF; BACTERIA,URINE Few /HPF (None Seen); RBC,URINE None Seen /HPF (0-5); SQUAMOUS EPITHELIAL CELL,UR MANY Squamous (<= Few)
[2020-07-17 17:51] LABS: MUCUS,URINE Few Strands
[2020-07-17 17:52] LABS: AMPHETAMINE SCREEN,URINE NEGATIVE (NEGATIVE); BENZODIAZEPINES SCREEN, URINE NEGATIVE (NEGATIVE); COCAINE SCREEN URINE NEGATIVE (NEGATIVE); METHADONE SCREEN, URINE NEGATIVE (NEGATIVE); METHAMPHETAMINES SCREEN, URINE NEGATIVE (NEGATIVE); OPIATE SCREEN, URINE NEGATIVE (NEGATIVE); OXYCODONE SCREEN, URINE NEGATIVE (NEGATIVE); PROPOXYPHENE SCREEN, URINE NEGATIVE (NEGATIVE); TRICYCLIC ANTIDEPRESSANT,URINE NEGATIVE (NEGATIVE)
== END 2020-07-17 23:59 | disposition home or self-care (01) ==
LOC: LAB.R 08:00
PROVIDERS: ATTEND Obstetrics & Gynecology
DX: Z32.01 Encounter for pregnancy test, result positive (principal)
CPT/HCPCS: 80306; 81001; 87086

== ENCOUNTER 2020-08-02 15:27 | Outpatient (CLI) | payer OTHER ==
--- NOTE | 2020-08-02 17:04 | Ultrasound Report ---
PROCEDURE: OB First Trimester INDICATIONS: TEST POSITIVE OUTSIDE/PRIOR DATING DATA: Last menstrual period (LMP): 05/15/2020. LMP-based estimated date of delivery (ZAIDA): 02/19/2021. First dating scan (date and location): 08/02/2020. Estimated date of delivery (ZAIDA) from first dating scan: 02/15/2021. TECHNIQUE: Real-time scanning was performed of the fetus and maternal pelvic organs, with image documentation. COMPARISON: None. FINDINGS: Embryo: Ivan living intrauterine . [place]-rump length measuring 5.3 cm, 11 weeks 6 days . heart rate 160 BPM. No perigestational hemorrhage. Cervix is closed. Measurement variability in dating: +/- 4 weeks by LMP, +/- 7 days by mean sac diameter (use before 6 weeks gestation if crown-rump length not able to be measured), +/- 5 days by crown-rump length (6-12 weeks gestation). Maternal organs: Ovaries are within normal limits. Right corpus luteum measuring at 2.1 cm. IMPRESSION: 1. Ivan living intrauterine at 11 weeks 6 days based on today's crown-rump length. Fet al heart rate 160 BPM. 2. No perigestational hemorrhage. Reviewed by: Fish Freeman MD on 08/02/2020 4:03 PM [facility] Approved by: Fish Freeman MD on 08/02/2020 4:03 PM [facility] Station ID: [id number]
== END 2020-08-02 15:28 | disposition home or self-care (01) ==
LOC: DI 15:27
PROVIDERS: ATTEND Obstetrics & Gynecology
DX: Z32.01 Encounter for pregnancy test, result positive (principal)
CPT/HCPCS: 81599; 85025; 86592; 86762; 86787; 86803; 86850; 86900; 86901; 87340; 87389

== ENCOUNTER 2020-08-02 16:09 | Outpatient (CLI) | payer OTHER ==
[2020-08-02 16:25] LABS: BASOPHILS % (AUTO) 0.3 %; EOSINOPHILS # (AUTO) 0.1 10^3/uL (0.0-0.7); EOSINOPHILS % (AUTO) 0.8 %; HGB - HEMOGLOBIN 12.5 g/dL (12.0-16.0); LYMPHOCYTES # (AUTO) 3.5 10^3/uL (1.5-3.5); MEAN CORPUSCULAR HEMOGLOBIN 27.5 pg (27.0-31.0); MEAN CORPUSCULAR HGB CONC 32.6 g/dL (32.0-36.0); MEAN CORPUSCULAR VOLUME 84.4 fL (81.0-99.0); MEAN PLATELET VOLUME 8.8 fL (7.9-10.8); MONOCYTES # (AUTO) 0.5 10^3/uL (0.0-1.0); MONOCYTES % (AUTO) 4.5 %; NEUTROPHILS # (AUTO) 7.1 10^3/uL (1.5-6.6); NEUTROPHILS % (AUTO) 63.2 %; PLT - PLATELET COUNT 288 10^3/uL (130-450); RED BLOOD COUNT 4.55 10^6/uL (4.20-5.40); RED CELL DISTRIBUTION WIDTH 13.4 % (12.0-15.0); WHITE BLOOD COUNT 11.2 x10^3/uL (4.8-10.8)
[2020-08-04 08:41] LABS: HIV AG/AB 4TH GEN NON-REACTIVE (NON-REACTIVE)
[2020-08-04 13:34] LABS: HEPATITIS C ANTIBODY NON-REACTIVE (NON-REACTIVE)
[2020-08-04 13:35] LABS: HEPATITIS B SURFACE ANTIGEN NON-REACTIVE (NON-REACTIVE)
== END 2020-08-02 16:10 | disposition home or self-care (01) ==
LOC: LAB 16:09
PROVIDERS: ATTEND Obstetrics & Gynecology
DX: Z32.01 Encounter for pregnancy test, result positive (principal)
CPT/HCPCS: 81599; 85025; 86762; 86787; 86803; 86850; 86900; 86901; 87340; 87389

== ENCOUNTER 2020-08-04 08:00 | Outpatient (CLI) | payer OTHER ==
[2020-08-04 21:04] LABS: TRICHOMONAS VAGINALIS DNA NEGATIVE (NEGATIVE)
== END 2020-08-04 08:01 | disposition home or self-care (01) ==
LOC: LAB.R 08:00
PROVIDERS: ATTEND Nurse Practitioner Obstetrics & Gynecology
DX: Z11.3 Encounter for screening for infections with a predominantly sexual mode of transmission (principal)
CPT/HCPCS: 87491; 87591; 87661

== ENCOUNTER 2020-09-04 08:00 | Outpatient (CLI) | payer OTHER ==
[2020-09-04 21:09] LABS: CANDIDA GROUP DNA POSITIVE (NEGATIVE); CANDIDA KRUSEI DNA NEGATIVE (NEGATIVE); TRICHOMONAS VAGINALIS DNA NEGATIVE (NEGATIVE)
== END 2020-09-04 23:59 | disposition home or self-care (01) ==
LOC: LAB.R 08:00
PROVIDERS: ATTEND Nurse Practitioner Obstetrics & Gynecology
DX: N76.0 Acute vaginitis (principal)
CPT/HCPCS: 87661; 87801

== ENCOUNTER 2020-10-02 08:00 | Outpatient (CLI) | payer OTHER ==
[2020-10-02 20:42] LABS: CANDIDA GROUP DNA NEGATIVE (NEGATIVE); CANDIDA KRUSEI DNA NEGATIVE (NEGATIVE); TRICHOMONAS VAGINALIS DNA NEGATIVE (NEGATIVE)
== END 2020-10-02 23:59 | disposition home or self-care (01) ==
LOC: LAB.R 08:00
PROVIDERS: ATTEND Nurse Practitioner Obstetrics & Gynecology
DX: N76.0 Acute vaginitis (principal)
CPT/HCPCS: 87661; 87801

== ENCOUNTER 2020-10-03 17:53 | Outpatient (CLI) | payer OTHER ==
--- NOTE | 2020-10-04 10:12 | Ultrasound Report ---
PROCEDURE: OB Detailed Eval INDICATIONS: SCREENING OUTSIDE/PRIOR DATING DATA: Last menstrual period (LMP): 05/15/2020 LMP-based estimated date of delivery (ZAIDA): 02/19/2021, as given by Hanny in the physician's office. First dating scan (date and location): 08/02/2020 Estimated date of delivery (ZAIDA) from first dating scan: 02/15/2021. TECHNIQUE: Real-time scanning was performed of the fetus, with image documentation and biometric measurements. COMPARISON: 08/02/2020 FINDINGS: General: A single live intrauterine gestation is present. Presentation: Variable Placenta: Placental position is posterior, without previa. Amniotic fluid index: 14.8 cm, within normal limits for gestational age. heart rate: 143 beats per minute. Maternal cervical canal: 4.5 cm long; normal length is 2.5 cm or more. biometrics: Biparietal diameter: 4.9 cm equals 20 weeks 5 days Head circumference: 17.7 cm equals 20 weeks 1 day Abdominal circumference: 16.7 cm equals 21 weeks 5 days Femur length: 3.4 cm equals 20 weeks 3 days Estimated gestational age from initial scan: 20 weeks 1 Composite gestational age from present scan: 20 weeks 5 days Estimated weight and percentile: 394 g, percentile rank not defined Measurement variability in biometric dating: +/- 10 days from 12-20 weeks gestation, +/- 2 weeks from 20-30 weeks gestation, +/- 3 weeks at 30 weeks gestation or later. Anatomic survey: Neuro: Ventricles are normal at less than 10 mm. Cisterna magna is normal at 3-11 mm. Cerebellum i s normal in size and morphology. Nuchal skin fold: Normal at less than 6 mm between 14 and 20 weeks gestational age. Face: Nose and lips, facial profile are normal. Spine: No evidence for spina bifida. Heart: 4-chambered heart is present, with normal ventricular outflow tracts. Diaphragm: Diaphragm is intact. Stomach: Left-sided stomach is present. Kidneys: No hydronephrosis. Normal is less than 5 mm in 2nd trimester, less than 7 mm in 3rd trimester. Cord: 3 vessel cord has orthotopic insertion. Bladder: Normal in size. Extremities: All 4 extremities are visualized. IMPRESSION: Single live intrauterine . No anatomic abnormalities are identified. Normal interval growth compared to the prior ultrasound examination. Reviewed by: Sharif Miles MD on 10/04/2020 9:10 AM [facility] Approved by: Sharif Miles MD on 10/04/2020 9:10 AM [facility] Station ID: [id number]
== END 2020-10-03 17:54 | disposition home or self-care (01) ==
LOC: DI 17:53
PROVIDERS: ATTEND Nurse Practitioner Obstetrics & Gynecology
DX: Z36.89 Encounter for other specified antenatal screening (principal)

== ENCOUNTER 2020-11-17 18:02 | Outpatient (CLI) | payer OTHER ==
[2020-11-17 19:22] LABS: HCT - HEMATOCRIT 32.1 % (37.0-47.0); HGB - HEMOGLOBIN 10.1 g/dL (12.0-16.0); MEAN CORPUSCULAR HEMOGLOBIN 27.4 pg (27.0-31.0); MEAN CORPUSCULAR HGB CONC 31.5 g/dL (32.0-36.0); MEAN PLATELET VOLUME 8.5 fL (7.9-10.8); RED BLOOD COUNT 3.69 10^6/uL (4.20-5.40); WHITE BLOOD COUNT 12.1 x10^3/uL (4.8-10.8)
== END 2020-11-17 18:03 | disposition home or self-care (01) ==
LOC: LAB 18:02
PROVIDERS: ATTEND Nurse Practitioner Obstetrics & Gynecology
DX: Z36.89 Encounter for other specified antenatal screening (principal)
CPT/HCPCS: 36415; 82950; 85027

== ENCOUNTER 2020-11-20 08:57 | Outpatient (CLI) | payer OTHER ==
[2020-11-20 09:42] LABS: GTT GLUCOSE,FASTING 93 mg/dL (70-100)
== END 2020-11-20 08:58 | disposition home or self-care (01) ==
LOC: LAB 08:57
PROVIDERS: ATTEND Nurse Practitioner Obstetrics & Gynecology
DX: O99.810 Abnormal glucose complicating pregnancy (principal)
CPT/HCPCS: 36415; 82951; 82952

== ENCOUNTER 2020-12-25 19:10 | Outpatient (CLI) | payer OTHER ==
[2020-12-25 19:22] LABS: BASOPHILS % (AUTO) 0.2 %; EOSINOPHILS # (AUTO) 0.1 10^3/uL (0.0-0.7); EOSINOPHILS % (AUTO) 0.5 %; HCT - HEMATOCRIT 31.6 % (37.0-47.0); HGB - HEMOGLOBIN 10.2 g/dL (12.0-16.0); LYMPHOCYTES # (AUTO) 3.1 10^3/uL (1.5-3.5); LYMPHOCYTES % (AUTO) 24.5 %; MEAN CORPUSCULAR HEMOGLOBIN 28.4 pg (27.0-31.0); MEAN CORPUSCULAR HGB CONC 32.3 g/dL (32.0-36.0); MEAN PLATELET VOLUME 8.2 fL (7.9-10.8); MONOCYTES # (AUTO) 0.7 10^3/uL (0.0-1.0); MONOCYTES % (AUTO) 5.1 %; NEUTROPHILS # (AUTO) 8.8 10^3/uL (1.5-6.6); NEUTROPHILS % (AUTO) 68.5 %; PLT - PLATELET COUNT 221 10^3/uL (130-450); RED BLOOD COUNT 3.59 10^6/uL (4.20-5.40); RED CELL DISTRIBUTION WIDTH 15.3 % (12.0-15.0); WHITE BLOOD COUNT 12.8 x10^3/uL (4.8-10.8)
[2020-12-25 19:35] LABS: ALBUMIN 3.1 g/dL (3.2-5.5); ALBUMIN/GLOBULIN RATIO 0.9 (1.0-2.2); BILIRUBIN,TOTAL 0.3 mg/dL (0.2-1.0); CALCIUM 8.6 mg/dL (8.5-10.3); CREATININE 0.8 mg/dL (0.4-1.0); POTASSIUM 3.7 mmol/L (3.5-5.0); TOTAL PROTEIN 6.5 g/dL (6.7-8.2)
== END 2020-12-25 19:11 | disposition home or self-care (01) ==
LOC: LAB 19:10
PROVIDERS: ATTEND Nurse Practitioner Obstetrics & Gynecology
DX: Z34.90 Encounter for supervision of normal pregnancy, unspecified, unspecified trimester (principal); Z87.59 Personal history of other complications of pregnancy, childbirth and the puerperium; Z87.19 Personal history of other diseases of the digestive system
CPT/HCPCS: 36415; 80053; 82239; 85025

== ENCOUNTER 2021-01-19 11:22 | Outpatient (CLI) | payer OTHER ==
[2021-01-19 11:33] LABS: HCT - HEMATOCRIT 34.3 % (37.0-47.0); HGB - HEMOGLOBIN 11.4 g/dL (12.0-16.0); MEAN CORPUSCULAR HEMOGLOBIN 28.6 pg (27.0-31.0); MEAN CORPUSCULAR HGB CONC 33.2 g/dL (32.0-36.0); MEAN CORPUSCULAR VOLUME 86.2 fL (81.0-99.0); MEAN PLATELET VOLUME 8.9 fL (7.9-10.8); RED BLOOD COUNT 3.98 10^6/uL (4.20-5.40); WHITE BLOOD COUNT 11.6 x10^3/uL (4.8-10.8)
== END 2021-01-19 11:23 | disposition home or self-care (01) ==
LOC: LAB 11:22
PROVIDERS: ATTEND Nurse Practitioner Obstetrics & Gynecology
DX: O99.019 Anemia complicating pregnancy, unspecified trimester (principal)
CPT/HCPCS: 36415; 85027

== ENCOUNTER 2021-01-22 13:57 | Outpatient (CLI) | payer OTHER ==
[2021-01-22 14:26] LABS: ALBUMIN 3.2 g/dL (3.2-5.5); ALBUMIN/GLOBULIN RATIO 0.9 (1.0-2.2); BILIRUBIN,TOTAL 0.2 mg/dL (0.2-1.0); CALCIUM 8.8 mg/dL (8.5-10.3); CREATININE 0.6 mg/dL (0.4-1.0); POTASSIUM 3.7 mmol/L (3.5-5.0); TOTAL PROTEIN 6.6 g/dL (6.7-8.2)
== END 2021-01-22 13:58 | disposition home or self-care (01) ==
LOC: LAB 13:57
PROVIDERS: ATTEND Nurse Practitioner Obstetrics & Gynecology
DX: Z87.19 Personal history of other diseases of the digestive system (principal); L29.9 Pruritus, unspecified
CPT/HCPCS: 36415; 80053; 82239

== ENCOUNTER 2021-01-28 08:00 | Outpatient (CLI) | payer OTHER | END 2021-01-28 23:59 | disposition home or self-care (01) | LOC: LAB.WC 08:00 | PROVIDERS: ATTEND Advanced Practice Midwife | DX: Z36.85 Encounter for antenatal screening for Streptococcus B (principal) | CPT/HCPCS: 87797 ==

== ENCOUNTER 2021-02-20 04:31 | Inpatient (IN) | payer OTHER ==
[2021-02-20] MEDS ORDERED: miSOPROStoL 200 MCG TABLET BC PRN (05:04)
[2021-02-20] MEDS ORDERED: CARBOPROST TROMETHAMINE 250 MCG/ML AMP IM PRN (05:04)
[2021-02-20] MEDS ORDERED: LIDOCAINE-MPF 1% 30 ML VIAL ID PRN (05:04)
[2021-02-20] MEDS ORDERED: TRANEXAMIC ACID IN NACL 1,000 MG/100 ML BAG IV PRN (05:04)
[2021-02-20] MEDS ORDERED: SODIUM CHLORIDE FLUSH 0.9% 10 ML SYRINGE IVP PRN (05:04)
[2021-02-20] MEDS ORDERED: METHYLERGONOVINE 0.2 MG/ML VIAL IM PRN (05:04)
[2021-02-20] MEDS ORDERED: OXYTOCIN 10 UNIT/ML VIAL IM PRN (05:04)
[2021-02-20 05:17] LABS: RUPTURE OF MEMBRANES PLUS POSITIVE (NEGATIVE)
[2021-02-20 05:35] LABS: BASOPHILS % (AUTO) 0.2 %; EOSINOPHILS # (AUTO) 0.1 10^3/uL (0.0-0.7); EOSINOPHILS % (AUTO) 0.6 %; HCT - HEMATOCRIT 35.9 % (37.0-47.0); HGB - HEMOGLOBIN 11.8 g/dL (12.0-16.0); LYMPHOCYTES # (AUTO) 3.8 10^3/uL (1.5-3.5); LYMPHOCYTES % (AUTO) 31.9 %; MEAN CORPUSCULAR HEMOGLOBIN 28.6 pg (27.0-31.0); MEAN CORPUSCULAR HGB CONC 32.9 g/dL (32.0-36.0); MEAN CORPUSCULAR VOLUME 86.9 fL (81.0-99.0); MEAN PLATELET VOLUME 9.5 fL (7.9-10.8); MONOCYTES # (AUTO) 0.8 10^3/uL (0.0-1.0); MONOCYTES % (AUTO) 6.6 %; NEUTROPHILS % (AUTO) 59.8 %; PLT - PLATELET COUNT 218 10^3/uL (130-450); RED BLOOD COUNT 4.13 10^6/uL (4.20-5.40); RED CELL DISTRIBUTION WIDTH 14.7 % (12.0-15.0); WHITE BLOOD COUNT 11.8 x10^3/uL (4.8-10.8)
[2021-02-20] MEDS ORDERED: ROPIVACAINE 0.2% 200 MG/100 ML BAG EP ONE (05:50)
[2021-02-20] MEDS ORDERED: ROPIVACAINE 0.2% 200 MG/100 ML BAG EP PRN (06:18)
[2021-02-20] MEDS ORDERED: ePHEDrine 50 MG/ML VIAL IVP PRN (06:18)
[2021-02-20] MEDS ORDERED: diphenhydrAMINE INJ 50 MG/ML VIAL IVP PRN (06:18)
[2021-02-20] MEDS ORDERED: NALBUPHINE 10 MG/ML AMP IVP PRN (06:18)
[2021-02-20] MEDS ORDERED: NALOXONE 0.4 MG/ML VIAL IVP PRN (06:18)
[2021-02-20] MEDS ORDERED: METOCLOPRAMIDE 10 MG/2 ML VIAL IVP PRN (06:18)
[2021-02-20] MEDS ORDERED: ONDANSETRON 4 MG/2 ML VIAL IVP PRN (06:18)
--- NOTE | 2021-02-20 06:19 | HISTORY & PHYSICAL EXAMINATION ---
Admit History - Smoking Status: Former smoker - Mother's Labs Mother's Blood Type: positive: O Mother's RH: positive: Positive GBS: positive: Group B Step Negative Rubella Status: positive: Immune - Other Maternal History Other Maternal History: Patient is a 26 yo at 40+1 wga here with SROM. Reports that she went to urinate and passed extra fluid after completing voiding. Since then, she had gross rupture of membranes with amniotic fluid soaking undergarments. Since the passage of gross fluid, she has had strong and regular contractions. No VB. Unclear hx of cholestasis. BA levels 11 in prior . BA were 12 at last assessment at 35 weeks. Failed one hour with normal 3H. Feels infant is larger than prior . Past Medical History: chronic recurrent bilateral shoulder bursitis Anxiety Depression UTI (chronic) Joint Swelling Past Surgical History: Unremarkable FAM HX: Mother: thyroid disease. BANSAL, hx of GDM SOC HX: Smoked Tobacco Use: Former smoker Cigarettes: Yes -- n/a pack(s) per day, Pack-Years: 150 Year Started: 2016 Years Smoked: 12 Year Quit: 2018 Years Since Last Quit: 2 Smokeless Tobacco Use: Current Counseled to Quit/Cut Down: yes Tobacco Use Comments: vaping Passive Smoke Exposure: yes HIV High Risk Behavior: no Caffeine Use: <1 drinks per day Exercise: yes Times/wk: 5 Type of Exercise: active with 2yr old daughter Seatbelt Use: 100 % Sun Exposure: occasionally Alcohol Use: no Drug Use: no PNC HX: Hx cholestasis - baseline LFTs WNL, repeat @ 35.4wks- wnl Anemia complicating - repeat CBC revealed worsening anemia - increased to tid iron supplementation. Repeat CBC 34.3. LMP: 05/15/2020 ZAIDA 02/19/2021 Initial U/S:08/02/2020 @ 11.6wks gestation for zaida 02/15/2021 c/w LMP dating FINAL ZAIDA Hx cholestasis with IOL @ 37wks. 81mg ASA initiated at 12wks. Baseline LFTs WNL- repeat @ 32wks. O pos/Rubella immune VZV:non immune Genetic testing: declines FAS: FAS WNL. Posterior placenta, no previa. 3VC. (percentile not defined). ERYN WNL. Glucola 164 3HR 93 144,130,76 Influenza: 07/17/2020 TDAP 12/01/2020 GBS at 36.6 weeks- NEG HSV: denies in self and parter Breast pump Rx 12/01/2020 MOD: Anticipate ; Partner Mendez. Daughter Venu; epidural; BOY- Dayo pp contraception: Nexplanon pap: 05/2018 - WNL ROS: As per HPI, otherwise remaining systems are negative Meds/Allgy - Home Medications Home Medications: Ambulatory Orders Medication Instructions Recorded Confirmed Ferrous Sulfate 325 mg PO DAILY 02/20/21 02/20/21 No122/Iron/Folic Acid 1 each PO DAILY 02/20/21 02/20/21 [ Multi Tablet] Valacyclovir HCl [Valtrex] 500 mg PO PRN PRN 02/20/21 02/20/21 - Allergies Allergies/Adverse Reactions: Allergies Allergy/AdvReac Type Severity Reaction Status Date / Time No Known Drug Allergies Allergy Verified 02/20/21 05:29 Physical - Abdominal Exam Vital Signs: Temp Pulse Resp BP Pulse Ox 98.1 F 83 20 02/20/21 05:24 02/20/21 05:24 02/20/21 05:24 Contraction Frequency (min/apart): Q2-4 at admit Contraction Intensity: positive: Moderate Uterine Resting Tone: positive: Soft - Monitoring Heart Rate Baseline: 135 min to mod rj, occ accels no decels - Presentation Presentation: positive: Vertex - Vaginal Exam Membranes: positive: Membranes ruptured Dilation (in cm): 5/90/-1 per RN exam Plan for Labor - Plan For Labor Plan for Labor: 26 yo at 40+1 wga here with SROM and labor LABOR: Expectant management Pitocin augmentation as indicated GBS neg FWB: Cat I/Cat II tracing, vertex, well grown, GBS neg -BA 12 but no pruritus, c/f possible cholestasis -CEFM given intermittent Cat II tracing PAIN: epidural as desired -nitrous oxide as desired -Fentanyl to 7cm , max cumulative dose 200 mcg In-patient care
--- NOTE | 2021-02-20 06:25 | ANESTHESIA ---
Pre-Anesthesia VS, & Labs - Diagnosis labor - Procedure epidural Vital Signs: Temp Pulse Resp BP Pulse Ox 36.7 C 83 20 02/20/21 05:24 02/20/21 05:24 02/20/21 05:24 Height: 5 ft 8 in Weight (kg): 95.254 kg Body Mass Index: 31.9 BMI Classification: Obese - NPO Other (clears) - Is Patient ?: Yes - Lab Results Current Lab Results: Laboratory Tests 02/20/21 05:10: WBC 11.8 H, RBC 4.13 L, Hgb 11.8 L, Hct 35.9 L, MCV 86.9, MCH 28.6, MCHC 32.9, RDW 14.7, Plt Count 218, MPV 9.5, Neut # (Auto) 7.0 H, Lymph # (Auto) 3.8 H, [place] # (Auto) 0.8, Eos # (Auto) 0.1, Baso # (Auto) 0.0, Absolute Nucleated RBC 0.00, Nucleated RBC % 0.0 Fish Bones: 02/20/21 05:10 Home Medications and Allergies Home Medications: Ambulatory Orders Ferrous Sulfate 325 mg PO DAILY 02/20/21 No122/Iron/Folic Acid [ Multi Tablet] 1 each PO DAILY 02/20/21 Valacyclovir HCl [Valtrex] 500 mg PO PRN PRN 02/20/21 Active Medications Carboprost Tromethamine (Carboprost Tromethamine 250 Mcg/Ml Amp) 250 mcg IM Q15M PRN PRN Reason: Step 4: Hemorrhage protocol Stop: 02/25/21 05:11 Diphenhydramine HCl (Diphenhydramine Inj 50 Mg/Ml Vial) 12.5 - 25 mg IVP Q6HR PRN PRN Reason: ITCHING Ephedrine Sulfate (Ephedrine 50 Mg/Ml Vial) 5 mg IVP Q5M PRN PRN Reason: For SBP<100;give until SBP>100 Lactated Ringer's (Lr) 1,000 mls @ 150 mls/hr IV .Q6H40M LETHA Oxytocin/Sodium Chloride (Pitocin/Sodium Chloride) 500 mls @ 999 mls/hr IV PRN PRN; Protocol PRN Reason: POST- HEMORR PREVENTION Stop: 02/25/21 05:11 Tranexamic Acid (Tranexamic 1,000 Mg/100ml-Nacl) 1,000 mg in 100 mls @ 600 mls/hr IV .ONCE PRN PRN Reason: EBL >1200mL and within 3hr Stop: 02/25/21 05:11 Ropivacaine (Naropin 0.2%) 200 mg in 100 mls @ 0 mls/hr EP PRN PRN; Protocol PRN Reason: PAIN Lidocaine HCl (Lidocaine-Mpf 1% 30 Ml Vial) 30 ml ID .ONCE PRN PRN Reason: PERINEAL REPAIR Stop: 02/25/21 05:11 Methylergonovine Maleate (Methylergonovine 0.2 Mg/Ml Vial) 0.2 mg IM .ONCE PRN PRN Reason: Step 2: Hemorrhage protocol Stop: 02/25/21 05:11 Metoclopramide HCl (Metoclopramide 10 Mg/2 Ml Vial) 10 mg IVP Q6HR PRN PRN Reason: Nausea / Vomiting Misoprostol (Misoprostol 200 Mcg Tablet) 800 mcg BC .ONCE PRN PRN Reason: Step 3: Hemorrhage protocol Stop: 02/25/21 05:11 Nalbuphine HCl (Nalbuphine 10 Mg/Ml Amp) 2.5 - 5 mg IVP Q4H PRN PRN Reason: ITCHING Naloxone HCl (Naloxone 0.4 Mg/Ml Vial) 0.1 mg IVP Q2M PRN PRN Reason: RR<8 Ondansetron HCl (Ondansetron 4 Mg/2 Ml Vial) 4 mg IVP Q6HR PRN PRN Reason: Nausea / Vomiting Oxytocin (Oxytocin 10 Unit/Ml Vial) 10 unit IM .ONCE PRN PRN Reason: Step one: If no IV access Stop: 02/25/21 05:11 Sodium Chloride (Sodium Chloride Flush 0.9% 10 Ml Syringe) 10 ml IVP PRN PRN PRN Reason: NEEDED PER PROVIDER ORDERS Sodium Chloride (Sodium Chloride Flush 0.9% 10 Ml Syringe) 10 ml IVP 0100,0900,1700 LETHA Ferrous Sulfate 325 mg PO DAILY 02/20/21 No122/Iron/Folic Acid [ Multi Tablet] 1 each PO DAILY 02/20/21 Valacyclovir HCl [Valtrex] 500 mg PO PRN PRN 02/20/21 Allergies/Adverse Reactions: Allergies Allergy/AdvReac Type Severity Reaction Status Date / Time No Known Drug Allergies Allergy Verified 02/20/21 05:29 Anes History & Medical History - Anesthetic History Anesthesia Complications: reports: No previous complications - Medical History Cardiovascular: reports: None Pulmonary: reports: None Gastrointestinal: reports: None Musculoskeletal: reports: Other Endocrine/Autoimmune: reports: HyPOthyroidism Smoking Status: Former smoker History of Cancer?: No Exam General: Alert Dental: WNL Mouth Opening: Greater than 4 Fingerbreadths Mallampati classification: II Thyromental Distance: greater than 6 cm Respiratory: Lungs clear Cardiovascular: Regular rate Plan Anesthesia Type: Epidural Consent for Procedure(s) Verified and Reviewed: Yes Code Status: Attempt Resuscitation ASA classification: 2-Mild systemic disease Is this case an emergency?: Yes
[2021-02-20] MEDS: LACTATED RINGERS 1,000 ML IV SCH ×2 (08:17→14:24)
[2021-02-20] MEDS ORDERED: hydrALAZINE INJ 20 MG/ML VIAL IVP PRN ×2 (09:07)
[2021-02-20] MEDS ORDERED: LABETALOL 20 MG/4 ML SYRINGE IVP PRN ×3 (09:07)
[2021-02-20] MEDS ORDERED: NIFEdipine 10 MG CAPSULE PO PRN (09:07)
--- NOTE | 2021-02-20 09:47 | PROVIDER PROGRESS NOTE ---
Subjective - Prog Note Date Prog Note Date: 02/20/21 Prog Note Time: 07:13 - Subjective Subjective: Epidural placed Well tolerated 7-8/C/-1 station epidural placement; clear fluid Cat II tracing with mod rj with scalp stim Objective - Vital Signs/Intake & Output Vital Signs: Vital Signs x48h Temp Pulse Resp 02/20/21 05:24 98.1 F 83 20 - Lab Results Fish Bones: 02/20/21 05:10 Other Labs: Lab Results x24hrs 02/20/21 02/20/21 02/20/21 Range/Units 06:20 05:10 04:52 WBC 11.8 H (4.8-10.8) x10^3/uL RBC 4.13 L (4.20-5.40) 10^6/uL Hgb 11.8 L (12.0-16.0) g/dL Hct 35.9 L (37.0-47.0) % MCV 86.9 (81.0-99.0) fL MCH 28.6 (27.0-31.0) pg MCHC 32.9 (32.0-36.0) g/dL RDW 14.7 (12.0-15.0) % Plt Count 218 (130-450) 10^3/uL MPV 9.5 (7.9-10.8) fL Neut # (Auto) 7.0 H (1.5-6.6) 10^3/uL Lymph # (Auto) 3.8 H (1.5-3.5) 10^3/uL [place] # (Auto) 0.8 (0.0-1.0) 10^3/uL Eos # (Auto) 0.1 (0.0-0.7) 10^3/uL Baso # (Auto) 0.0 (0.0-0.1) 10^3/uL Absolute Nucleated RBC 0.00 x10^3/uL Nucleated RBC % 0.0 /100WBC Membranes Rupture POSITIVE A (NEGATIVE) Blood Type O POSITIVE Antibody Screen NEGATIVE
--- NOTE | 2021-02-20 09:48 | PROVIDER PROGRESS NOTE ---
Subjective - Prog Note Date Prog Note Date: 02/20/21 Prog Note Time: 09:30 - Subjective Subjective: Patient comfortable with epidural SVE C/C/0 station Started pushing Contractions have spaced Starting pitocin at 1 mU/min to organize contractions Anticipate Objective - Vital Signs/Intake & Output Vital Signs: Vital Signs x48h Temp Pulse Resp 02/20/21 05:24 98.1 F 83 20 - Lab Results Fish Bones: 02/20/21 05:10 Other Labs: Lab Results x24hrs 02/20/21 02/20/21 02/20/21 Range/Units 06:20 05:10 04:52 WBC 11.8 H (4.8-10.8) x10^3/uL RBC 4.13 L (4.20-5.40) 10^6/uL Hgb 11.8 L (12.0-16.0) g/dL Hct 35.9 L (37.0-47.0) % MCV 86.9 (81.0-99.0) fL MCH 28.6 (27.0-31.0) pg MCHC 32.9 (32.0-36.0) g/dL RDW 14.7 (12.0-15.0) % Plt Count 218 (130-450) 10^3/uL MPV 9.5 (7.9-10.8) fL Neut # (Auto) 7.0 H (1.5-6.6) 10^3/uL Lymph # (Auto) 3.8 H (1.5-3.5) 10^3/uL [place] # (Auto) 0.8 (0.0-1.0) 10^3/uL Eos # (Auto) 0.1 (0.0-0.7) 10^3/uL Baso # (Auto) 0.0 (0.0-0.1) 10^3/uL Absolute Nucleated RBC 0.00 x10^3/uL Nucleated RBC % 0.0 /100WBC Membranes Rupture POSITIVE A (NEGATIVE) Blood Type O POSITIVE Antibody Screen NEGATIVE
[2021-02-20] MEDS: OXYTOCIN/SODIUM CHLORIDE 500 ML IV PRN ×2 (11:00→11:38)
[2021-02-20] MEDS ORDERED: SIMETHICONE CHEW 80 MG TABLET PO PRN (11:51)
[2021-02-20] MEDS ORDERED: ONDANSETRON ODT 4 MG TABLET TL PRN (11:51)
[2021-02-20] MEDS ORDERED: LACTATED RINGERS 1,000 ML IV SCH (12:00)
[2021-02-20] MEDS ORDERED: miSOPROStoL 100 MCG TABLET BC SCH (12:00)
--- NOTE | 2021-02-20 12:09 | DELIVERY NOTE ---
Delivery Note - Labor Labor: positive: Spontaneous - Delivery Method Delivery Method: positive: Spontaneous vaginal delivery - Presentation Presentation: positive: Vertex - Nuchal Cord Nuchal Cord: positive: Present - Anesthetic Anesthetic Type: - Amniotic Fluid Description Amniotic Fluid Description: positive: Clear - Episiotomy Type Episiotomy Type: positive: None - Laceration Laceration: positive: 2nd degree, Perineal - Suture Suture Type: positive: Vicryl Suture Size: positive: 3-0 - : positive: Stimulated, Warmed, Warmer used [place] sex: positive: Male - Estimated Blood Loss Estimated Blood Loss (in cc): 650 - Post Delivery Events Post Delivery Events: positive: Hemorrhage, Shoulder dystocia - Delivery Comments (Free Text/Narrative) Delivery Comments (Free Text/Narrative): STAGE I: Patient is a 26 yo at 40+1 wga admitted with spontaneous rupture of membranes. Gross rupture of membranes with amniotic fluid soaking undergarments and 3 am. Clear fluid absent of meconium staining. Presented at 05:P00 with initial SVE 5/90/-1 per RN exam. Contractions started spontaneously without need for pitocin augmentation. GBS negative; antibiotic ppx not indicated. Epidural for pain management. Intermittent periods of cat II tracing with response to fluid bolus, scalp stimulation, and position change. Complete dilation noted at 9:11 am. STAGE II: Patient started pushing at 9:12 am. Received second stage pitocin to max dose of 2 mU/min. Infant delivered at 10:55 am from [facility]HA[facility] presentation. Tight nuchal and bilateral bandolier cord noted, not amenable to reduction. Shoulder dystocia of 2:00 minutes, exacerbated by restrictive cord presentation, relieved with Leslye and rotational maneuvers. Infant somersaulted through cord at time of delivery. Apgars were 7/9 with weight pending. Cord gases were sent. A: 7.281/59.3/12.8/24.3/26.2/-4.3 V: 7.387/33.7/32.5/19.8/20.8/-4.1 was delivered, cord was clamped x2 and cut after minimal delay, and infant was handed off to pediatric team. STAGE III: Placenta delivered at 10:58 with manual expression. hemorrhage upon delivery of placenta relived with bimanual massage, pitocin, misoprostol 600 mcg BC, TXA, and methergine. EBL 650. Perineum showed small 2nd degree midline laceration. Repaired in the usual sterile fashion in layers using 3-0 Vicryl. Good hemostasis noted at close of procedure.
[2021-02-20] MEDS: SODIUM CHLORIDE FLUSH 0.9% 10 ML SYRINGE IVP SCH ×2 (12:40→16:00)
[2021-02-20] MEDS: ACETAMINOPHEN 500 MG TABLET PO SCH ×2 (12:46→21:49)
[2021-02-20] MEDS: IBUPROFEN 600 MG TABLET PO SCH ×2 (12:47→18:51)
[2021-02-21] MEDS: DOCUSATE SODIUM 100 MG CAPSULE PO PRN ×2 (00:56→09:02)
[2021-02-21] MEDS: IBUPROFEN 600 MG TABLET PO SCH ×2 (00:57→09:02)
[2021-02-21] MEDS: ACETAMINOPHEN 500 MG TABLET PO SCH ×2 (06:16→13:59)
[2021-02-21 08:38] VITALS: BP 99/79
--- NOTE | 2021-02-21 12:38 | PROVIDER PROGRESS NOTE ---
Subjective - Prog Note Date Prog Note Date: 02/21/21 Prog Note Time: 12:35 - Subjective Subjective: Doing very well. Feels more confident with this delivery. Patient is up and ambulating, tolerating po, and voiding. Pain is well managed with pain medicati ons. Eager to DC when baby is cleared. Objective - Vital Signs/Intake & Output Reviewed Vital Signs: Yes Vital Signs: Vital Signs x48h Temp Pulse Resp BP Pulse Ox 02/21/21 08:00 97.9 F 79 16 99/79 100 Intake & Output: Intake & Output 02/18/21 02/19/21 02/20/21 02/21/21 23:59 23:59 23:59 23:59 Intake Total 1520 Output Total 1100 Balance 420 - Objective General Appearance: positive: No acute distress Respiratory: positive: Chest non-tender, No respiratory distress, Breath sounds nml Cardiovascular: positive: Regular rate & rhythm Abdomen: positive: Non-tender, Other (Soft- ff below umbi) Rectal: positive: Tender prostate Skin: positive: Color nml, Warm, Dry Extremities: positive: Non-tender, No pedal edema Neurologic/Psychiatric: positive: Oriented x3 - Lab Results Fish Bones: 02/20/21 05:10 Assessment/Plan - Problem List (1) (normal spontaneous vaginal delivery) Impression: PPD#1 s/p with shoulder dystocia Doing well Meeting goals for discharge DC to home once baby is cleared Rh positive/Rub imm Routine DC instructions given
--- NOTE | 2021-02-21 12:40 | Discharge Plan ---
Discharge Plan Problem Reviewed?: Yes Disposition: Home, Self Care Condition: Good Diet: Regular Activity Restrictions: Additional Comments (Nothing in the vagina for 6 weeks: No intercourse, tampons, douching Call for: -Fever greater than 100.5 - Pain that does not improve with pain medication -Heavy bleeding in which you are soaking a pad an hour for 2 hours in a row No tub baths or hot tubs for 4 weeks) Shower Restrictions: No (No tub baths or hot tubs for 4 weeks) Driving Restrictions: No Plan of Treatment: Ibuprofen 600 mg by mouth every 6 hours as needed for pain Acetaminophen 500-1000 mg by mouth every 8 hours as needed for pain Docusate 100-200 mg by mouth twice a day as needed for constipation Additional Instructions or Follow Up instructions: Follow up in one week with Idania Burns or Carmelita Plunkett No Smoking: If you smoke, Please STOP! Call for help. Follow-up with: YAHIR DIAZ DO [Primary Care Provider] -
--- NOTE | 2021-02-21 12:42 | DISCHARGE SUMMARY ---
Discharge Summary Discharge Date: 02/21/21 Condition at Discharge: Good Discharge Disposition: 01 Home, Self Care - DIAGNOSES Admission Diagnoses: IUP at 40+1 wga Spontaneous rupture of membranes Possible cholestasis of Discharge Diagnoses with Status of Each Condition: Same and delivery of term gestation Shoulder dystocia (complicated by restrictive nuchal and bandolier cord) hemorrhage - HPI History of Present Illness: Patient is a 26 yo admitted at 40+1 wga with SROM. Presented with gross rupture of membranes with amniotic fluid soaking undergarments. Since the passage of gross fluid, she has had strong and regular contractions. No VB. Unclear hx of cholestasis. BA levels 11 in prior . BA were 12 at last assessment at 35 weeks. Failed one hour with normal 3H. Feels is larger than prior . - HOSPITAL COURSE Hospital Course: STAGE I: Patient is a 26 yo at 40+1 wga admitted with spontaneous rupture of membranes. Gross rupture of membranes with amniotic fluid soaking undergarments and 3 am. Clear fluid absent of meconium staining. Presented at 05:P00 with initial SVE 5/90/-1 per RN exam. Contractions started spontaneously without need for pitocin augmentation. GBS negative; antibiotic ppx not indicated. Epidural for pain management. Intermittent periods of cat II tracing with response to fluid bolus, scalp stimulation, and position change. Complete dilation noted at 9:11 am. STAGE II: Patient started pushing at 9:12 am. Received second stage pitocin to max dose of 2 mU/min. delivered at 10:55 am from RASHAAD presentation. Tight nuchal and bilateral bandolier cord noted, not amenable to reduction. Shoulder dystocia of 2:00 minutes, exacerbated by restrictive cord presentation, relieved with Leslye and rotational maneuvers. somersaulted through cord at time of delivery. Apgars were 7/9 with weight pending. Cord gases were sent. A: 7.281/59.3/12.8/24.3/26.2/-4.3 V: 7.387/33.7/32.5/19.8/20.8/-4.1 Infant was delivered, cord was clamped x2 and cut after minimal delay, and infant was handed off to pediatric team. STAGE III: Placenta delivered at 10:58 with manual expression. hemorrhage upon delivery of placenta relived with bimanual massage, pitocin, misoprostol 600 mcg BC, TXA, and methergine. EBL 650. Perineum showed small 2nd degree midline laceration. Repaired in the usual sterile fashion in layers using 3-0 Vicryl. Good hemostasis noted at close of procedure. course was uncomplicated. VSS and patient without symptoms concerning for anemia. Discharged to home on PPD#1. Rh positive and Rubella immune Declines prescription medications - ALLERGIES Allergies/Adverse Reactions: Allergies Allergy/AdvReac Type Severity Reaction Status Date / Time No Known Drug Allergies Allergy Verified 02/20/21 05:29 - MEDICATIONS Home Medications: Ambulatory Orders Medication Instructions Recorded Confirmed Ferrous Sulfate 325 mg PO DAILY 02/20/21 02/20/21 No122/Iron/Folic Acid 1 each PO DAILY 02/20/21 02/20/21 [ Multi Tablet] Valacyclovir HCl [Valtrex] 500 mg PO PRN PRN 02/20/21 02/20/21 - LABS Result Diagrams: 02/20/21 05:10 - FOLLOW UP Follow Up: 1 week - TIME SPENT Time Spent in Discharge (Minutes): 30
== END 2021-02-21 14:10 | disposition home or self-care (01) | DRG 806 ==
LOC: WFO 04:31 → FBP 04:32 → WFO 05:03 → FBP 05:04
PROVIDERS: ADMIT Obstetrics & Gynecology; ATTEND Obstetrics & Gynecology
PROC: 10E0XZZ Delivery of Products of Conception, External Approach (ICD-10-PCS; principal; 2021-02-20)
PROC: 0KQM0ZZ Repair Perineum Muscle, Open Approach (ICD-10-PCS; 2021-02-20)
DX: O70.1 Second degree perineal laceration during delivery (principal); O72.1 Other immediate postpartum hemorrhage; Z37.0 Single live birth; O69.81X0 Labor and delivery complicated by cord around neck, without compression, not applicable or unspecified; O69.89X0 Labor and delivery complicated by other cord complications, not applicable or unspecified; O66.0 Obstructed labor due to shoulder dystocia; Z3A.40 40 weeks gestation of pregnancy; Z87.891 Personal history of nicotine dependence; O99.214 Obesity complicating childbirth
CPT/HCPCS: 36415; 84112; 85025; 86850; 86900; 86901; A9270; J2210; J7120; 99213

== ENCOUNTER 2021-03-04 08:00 | Outpatient (CLI) | payer OTHER ==
[2021-03-04 16:27] LABS: BILIRUBIN,URINE NEGATIVE (NEGATIVE); GLUCOSE, URINE (UA) NEGATIVE (NEGATIVE); KETONES,URINE (UA) NEGATIVE (NEGATIVE); LEUKOCYTE ESTERASE, URINE SMALL (NEGATIVE); NITRITE,URINE NEGATIVE (NEGATIVE); OCCULT BLOOD,URINE LARGE (NEGATIVE); PH,URINE 5.5 PH (5.0-7.5); PROTEIN,URINE NEGATIVE (NEGATIVE); UROBILINOGEN,URINE 0.2 (NORMAL) E.U./dL (NORMAL)
[2021-03-04 16:34] LABS: CLARITY,URINE SL. CLOUDY (CLEAR)
[2021-03-04 16:38] LABS: AMORPHOUS SEDIMENT,UR Marked /LPF; BACTERIA,URINE Many /HPF (None Seen); SQUAMOUS EPITHELIAL CELL,UR FEW Squamous (<= Few)
[2021-03-04 20:38] LABS: BACTERIAL VAGINOSIS DNA NEGATIVE (NEGATIVE); CANDIDA GLABRATA DNA NEGATIVE (NEGATIVE); CANDIDA GROUP DNA NEGATIVE (NEGATIVE); CANDIDA KRUSEI DNA NEGATIVE (NEGATIVE); TRICHOMONAS VAGINALIS DNA NEGATIVE (NEGATIVE)
== END 2021-03-04 23:59 | disposition home or self-care (01) ==
LOC: LAB.WC 08:00
PROVIDERS: ATTEND Obstetrics & Gynecology
DX: R30.9 Painful micturition, unspecified (principal); L29.8 Other pruritus
CPT/HCPCS: 81001; 81003; 87086; 87661; 87801

== ENCOUNTER 2021-06-21 16:34 | Emergency (ER) | payer OTHER ==
[2021-06-21 16:48] VITALS: BP 114/65
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
== END 2021-06-21 17:39 | disposition home or self-care (01) ==
LOC: ED 16:34
DX: F41.9 Anxiety disorder, unspecified (principal); F32.A Depression, unspecified; Z87.891 Personal history of nicotine dependence
CPT/HCPCS: 99282; 99283